=== PATIENT | male | born 1960 | race Caucasian/White ===

== ENCOUNTER 2024-07-09 17:17 | Inpatient (IN) ==
--- NOTE | 2024-07-09 17:40 | XRay Report ---
XR chest 1V not portable HISTORY: 63 years-old Male Chest pain, nonspecific COMPARISON: None TECHNIQUE: PA view of the chest FINDINGS: Cardiomediastinal silhouettes are within normal limits. No pneumothorax, pleural effusion or airspace consolidation. Spondylitic spurring of the spine. IMPRESSION: No acute process. ACT 112: Negative or not required by law. The above report was generated using voice recognition software. It may contain grammatical, syntax o r spelling errors. Electronically signed by: Travis Busby M.D. 07/09/2024 5:39 PM
[2024-07-09 17:56] LABS: Basophils # (auto) 0.06 K/uL (0.00-0.20); Basophils % (auto) 0.7 %; Eosinophils # (auto) 0.18 K/uL (0.00-0.50); Eosinophils % (auto) 2.2 %; Hematocrit (blood only) 43.3 % (42.0-52.0); Hemoglobin 14.8 g/dl (14.0-18.0); Immature Granulocytes # (auto) 0.02 K/uL (0.01-0.20); Immature Granulocytes % (auto) 0.2 %; Lymphocytes # (auto) 1.94 K/uL (1.20-3.40); Lymphocytes % (auto) 23.5 %; Mean Corpuscular Hemoglobin 28.8 pg (25.0-34.0); Mean Corpuscular Hgb Conc 34.2 g/dL (32.0-36.0); Mean Corpuscular Volume 84.4 fL (80.0-100.0); Mean Platelet Volume 9.9 fL (9.4-12.4); Monocytes # (auto) 0.84 K/uL (0.11-0.59); Monocytes % (auto) 10.2 %; Neutrophils # (auto) 5.23 K/uL (1.40-6.50); Neutrophils % (auto) 63.2 %; Platelet Count 239 K/uL (130-400); RDW Coefficient of Variation 12.8 % (11.5-14.5); RDW Standard Deviation 39.2 fL (36.4-46.3); Red Blood Count 5.13 M/uL (4.70-6.10); White Blood Count 8.27 K/ul (4.8-10.8)
[2024-07-09 18:11] LABS: Albumin Globulin Ratio 1.5 (0.9-2); Albumin Level 4.5 gm/dl (3.4-5.0); BUN Creatinine Ratio 13.4 (10-20); Bilirubin,Total 0.5 mg/dl (0.2-1.0); Calcium 9.8 mg/dl (8.6-10.3); Creatinine Clr Calc Pharmacy 85.8 ml/min; Est GFR (African American) 81.7 ml/min; Est GFR (Non-African American) 70.5 ml/min; Globulin 3.1 gm/dl (2.5-4.0); Potassium 3.9 mmol/L (3.5-5.1); Total Protein 7.6 gm/dl (6.0-8.3)
[2024-07-09 18:21] LABS: INR 0.9 (0.9-1.1); Partial Thromboplastin Ratio 0.9; Partial Thromboplastin Time 25 Seconds (21-31)
[2024-07-09 18:40] LABS: Troponin I High Sensitivity 3130.8 pg/ml (0-20)
--- NOTE | 2024-07-09 19:01 | Emergency Department Note ---
Impression & Plan Unstable angina pectoris, Chest pain, Non-ST elevation [place] (NSTEMI), Elevated troponin ED Provider Note NAME: KAREN VILLANUEVA AGE: 63 SEX: M : 1960 ARRIVES VIA: Walk-In INFORMANT: Patient ED PROVIDER(S): Naga Orozco DO CHIEF COMPLAINT: chest pain HPI: Patient is a 63-year-old male who presents to the ER for chest pain. Pain is located in the left upper shoulder and left mid chest. He describes it as a tightness. It does go down the arm. He thinks he has some mild shortness of breath. He notes has been present for the past 2 days. He notes it was coming and going initially but now has been constant all day. Denies any coughing of blood, urinating blood, vomiting blood. No recent trauma or surgery. ADDITIONAL HISTORY OBTAINED: Per HPI Chronic Medical/Social Conditions Affecting Care: Per HPI PAST MEDICAL HISTORY:See Below PAST SURGICAL HISTORY:See Below FAMILY HISTORY:See Below SOCIAL HISTORY:See Below HOME MEDICATIONS:See Below ALLERGIES:See Below VITALS:See Below PHYSICAL EXAMINATION: GENERAL: Sitting up in bed, alert, well appearing, well nourished, no distress, non-toxic EYE EXAM: normal conjunctiva. PERRL and EOM's grossly intact. OROPHARYNX: mucous membranes are moist NECK: supple, no nuchal rigidity, no adenopathy, non-tender LUNGS: Clear to auscultation. Normal chest wall mechanics HEART: no murmurs, S1 normal and S2 normal ABDOMEN: abdomen soft, non-tender, normo-active bowel sounds, no masses, no rebound or guarding. UPPER EXTREMITIES: upper extremities are grossly normal. LOWER EXTREMITIES: No pitting edema. Calves are equal bilaterally NEURO EXAM: Normal sensorium, cranial nerves II-XII grossly intact, normal speech, no gross weakness of arms, no gross weakness of legs. MEDICAL DECISION MAKING: Patient is a 63-year-old male who presents to the ER for chest pain which started yesterday. IV was established medicos obtained. Labs show no significant leukocytosis or anemia. INR unremarkable. BMP with LFTs bilirubin was unremarkable. Troponin was elevated at 3000. Upon arrival he was having chest pain. EKG showed ST depressions. He was given nitro and aspirin. Chest pain resolved. It did recur. He was already on a heparin drip and was given heparin bolus. I discussed with cardiology Dr. Gallardo once the troponin was elevated and at this time the patient was initially pain-free. He recommended if the pain reoccurs to call heart alert. Pain did recur later and heart alert was called. Patient was taken emergently to the Child Care Worker. Patient denied any contraindications including hemoptysis, bright red blood per rectum, recent surgery, trauma or head bleeds. Consults/Care Managements Discussions: Per [facility] Triage Nursing notes reviewed. Limited review of prior medical records performed Vital Signs: reviewed and remarkable for HTN Differential diagnosis: Cardiac ischemia, aortic dissection, pulmonary embolism, pneumothorax, pneumonia, pericarditis, myocarditis, esophageal rupture, GERD, cholecystitis, pancreatitis, musculoskeletal, as well as other pathologies. ER treatment provided: See below Diagnostics interpreted by me include EKG and cardiac monitoring as listed below: -Cardiac Monitoring: An order was placed for continuous cardiac monitoring. The monitor shows a rate of 80 with sinus rhythm. -ECG: EKG #2 Sinus rhythm rate of 77 Normal axis No PVCs QTc 452 EKG the #1 Sinus rhythm rate [address] changes in inferior leads QTc 456 -Laboratory studies:Interpreted by me as stated above in MDM and shown below. Imaging studies: Xrays: As interpreted by me: Portable AP upright 1 view of the chest shows no focal infiltrate CTs show: none Procedures:none Critical Care: I have personally spent 35 minutes of critical care time in the direct management of this patient. This includes bedside care, interpretation of diagnostic studies, and testing, discussion with consultants, patient, and family members, and other required patient management activities. This 35 minutes is in excess of all separately billable procedures. Past Med/Surg History Problem List Bunionette of right foot Hallux valgus (acquired), right foot Encounter for pre-operative examination Medical History Acid reflux Depression Hearing deficit BL History of COVID-19 11/01/20 GHS; congestion, loss of taste/smell; denies lingering symptoms HLD (hyperlipidemia) HTN (hypertension) Tinnitus Surgical History History of arthroscopy of left knee x 2 History of arthroscopy of right knee History of colonoscopy History of foot surgery Rt History of surgical removal of ganglion cyst History of tonsillectomy Family History Other No family history of adverse response to anesthesia Social History Smoking Status: Never smoker Second Hand Exposure: No; Do You Dip or Chew Tobacco: No; Hx Alcohol Use: Yes Alcohol type: beer Hx Substance Use: No Preferred Language: Taiwanese Communication Ability: Effective Visual Impairment: No Limitations Chair And Couch Maker Required: No Beliefs That Will Affect Care: None Current Living Situation: Spouse Other Information That Helps Us Care for You: No Feels Safe at Home: Yes Safety Concerns: Feels Safe At This Time Assistive Devices: Glasses, Hearing Aid - Left and Hearing Aid - Right Allergies Allergies Allergy/AdvReac Type Severity Reaction Status Date / Time No Known Allergies Allergy Verified 07/09/24 19:12 Home Meds Home Medications Medication Instructions Recorded Confirmed omeprazole 20 mg tablet,delayed 20 mg PO DAILY PRN gerd 02/15/21 07/09/24 release aspirin 81 mg tablet,delayed 81 mg PO DAILY 07/09/24 07/09/24 release lidocaine 5 % topical patch 1 patch topical DAILY PRN SHOULDER 07/09/24 07/09/24 PAIN lisinopril 10 mg tablet 10 mg PO QAM 07/09/24 07/09/24 rosuvastatin 40 mg tablet 40 mg PO QAM 07/09/24 07/09/24 Results & Data (ED) Vital Signs Vital Signs - 24 hr 07/09/24 17:19 07/09/24 19:00 07/09/24 19:00 Temperature 36.5 C Temperature Source Temporal Artery Scan Pulse Rate 83 81 Pulse Rate from SpO2 Sensor Respiratory Rate 15 16 Respiratory Effort / Characteristics Non-Labored Spontaneous Respiratory Depth Normal Blood Pressure 174/109 H 157/98 H Blood Pressure Mean 130 122 Pulse Oximetry 95 97 97 Oxygen Delivery Method Room Air Room Air Room Air Sepsis Recent Fever Within 48 Hours No Sepsis New/Unexplained Change in Mental Status No Sepsis Action Taken by Nursing No Action Required 07/09/24 19:10 07/09/24 19:16 07/09/24 19:21 Temperature Temperature Source Pulse Rate 75 Pulse Rate from SpO2 Sensor 75 Respiratory Rate 18 Respiratory Effort / Characteristics Respiratory Depth Blood Pressure 151/98 H 142/91 H Blood Pressure Mean 107 108 Pulse Oximetry 97 96 Oxygen Delivery Method Room Air Room Air Sepsis Recent Fever Within 48 Hours Sepsis New/Unexplained Change in Mental Status Sepsis Action Taken by Nursing 07/09/24 19:30 07/09/24 19:30 07/09/24 19:48 Temperature Temperature Source Pulse Rate 71 70 Pulse Rate from SpO2 Sensor 71 69 Respiratory Rate 18 14 Respiratory Effort / Characteristics Respiratory Depth Blood Pressure 167/101 H 167/101 H 140/88 Blood Pressure Mean 138 123 105 Pulse Oximetry 99 98 Oxygen Delivery Method Room Air Room Air Sepsis Recent Fever Within 48 Hours Sepsis New/Unexplained Change in Mental Status Sepsis Action Taken by Nursing 07/09/24 19:51 07/09/24 19:52 07/09/24 19:53 Temperature Temperature Source Pulse Rate 71 75 75 Pulse Rate from SpO2 Sensor 72 Respiratory Rate 15 18 Respiratory Effort / Characteristics Respiratory Depth Blood Pressure 132/78 140/88 Blood Pressure Mean 96 105 Pulse Oximetry 98 96 Oxygen Delivery Method Room Air Room Air Sepsis Recent Fever Within 48 Hours Sepsis New/Unexplained Change in Mental Status Sepsis Action Taken by Nursing 07/09/24 19:54 07/09/24 20:18 07/09/24 20:21 Temperature 36.9 C Temperature Source Oral Pulse Rate 85 82 Pulse Rate from SpO2 Sensor 84 82 Respiratory Rate 21 22 Respiratory Effort / Characteristics Respiratory Depth Blood Pressure 172/119 H 179/114 H Blood Pressure Mean 136 135 Pulse Oximetry 98 98 Oxygen Delivery Method Room Air Room Air Room Air Sepsis Recent Fever Within 48 Hours Sepsis New/Unexplained Change in Mental Status Sepsis Action Taken by Nursing Laboratory Data 07/09/24 17:45 07/09/24 17:45 Lab Results 07/09/24 07/09/24 Range/Units 17:45 19:43 WBC 8.27 (4.8-10.8) K/ul RBC 5.13 (4.70-6.10) M/uL Hgb 14.8 (14.0-18.0) g/dl Hct 43.3 (42.0-52.0) % MCV 84.4 (80.0-100.0) fL MCH 28.8 (25.0-34.0) pg MCHC 34.2 (32.0-36.0) g/dL RDW Std Deviation 39.2 (36.4-46.3) fL RDW Coeff of Yamel 12.8 (11.5-14.5) % Plt Count 239 (130-400) K/uL MPV 9.9 (9.4-12.4) fL Immature Gran % (Auto) 0.2 % Neut % (Auto) 63.2 % Lymph % (Auto) 23.5 % [place] % (Auto) 10.2 % Eos % (Auto) 2.2 % Baso % (Auto) 0.7 % Neut # (Auto) 5.23 (1.40-6.50) K/uL Lymph # (Auto) 1.94 (1.20-3.40) K/uL [place] # (Auto) 0.84 H (0.11-0.59) K/uL Eos # (Auto) 0.18 (0.00-0.50) K/uL Baso # (Auto) 0.06 (0.00-0.20) K/uL Immature Gran # (Auto) 0.02 (0.01-0.20) K/uL PT 10.0 (9.0-12.0) Seconds INR 0.9 (0.9-1.1) APTT 25 (21-31) Seconds PTT Ratio 0.9 Sodium 137 (136-145) mmol/L Potassium 3.9 (3.5-5.1) mmol/L Chloride 102 (98-107) mmol/L Carbon Dioxide 29 (21-32) mmol/L Anion Gap 6 (3-11) BUN 15 (6-23) mg/dl Creatinine 1.12 (0.6-1.4) mg/dl Est Cr Clr Drug Dosing 85.8 ml/min Est GFR ( Amer) 81.7 ml/min Est GFR (Non-Af Amer) 70.5 ml/min BUN/Creatinine Ratio 13.4 (10-20) Glucose 105 H (70-99(Fasting)) mg/dl Calcium 9.8 (8.6-10.3) mg/dl Magnesium 2.0 (1.7-2.4) mg/dl Total Bilirubin 0.5 (0.2-1.0) mg/dl AST 45 H (13-39) U/L ALT 24 (7-52) U/L Alkaline Phosphatase 70 (34-104) U/L Troponin I High Sens 3130.8 H* 3819.9 H* D (0-20) pg/ml Total Protein 7.6 (6.0-8.3) gm/dl Albumin 4.5 (3.4-5.0) gm/dl Globulin 3.1 (2.5-4.0) gm/dl Albumin/Globulin Ratio 1.5 (0.9-2) Administered Medications Heparin Sodium/Dextrose (Heparin Sodium/Dextrose) 25,000 units in 500 mls @ 20 mls/hr IV .Q24H [facility]; Protocol Stop: 08/08/24 19:14 Last Admin: 07/09/24 19:18 Dose: 1,000 units/hr, 20 mls/hr Documented By: HIMANSHU Co-signed By: JEM Sodium Chloride (Nss) 1,000 mls @ 75 mls/hr IV .[id number] ARTIS Stop: 08/08/24 21:59 Last Admin: 07/09/24 22:17 Dose: 75 mls/hr Documented By: [id number] Miscellaneous (Icu Protocol For Hyperglycemia) 1 each N/A ACHS ARTIS Stop: 07/11/24 21:34 Last Admin: 07/09/24 22:22 Dose: Not Given Documented By: [id number] Discontinued Medications Aspirin (Aspirin Chew 324 Mg) 324 mg PO NOW STA Stop: 07/09/24 18:55 Last Admin: 07/09/24 19:13 Dose: 324 mg Documented By: HIMANSHU Fentanyl Citrate (Fentanyl Citrate Pf 100 Mcg/2 Ml Vial) Confirm Administered Dose 100 mcg .ROUTE .STK-MED ONE Stop: 07/09/24 20:16 Last Increment: 07/09/24 21:47 Dose: 75 mcg Documented By: TJ Heparin Sodium (Porcine) (Heparin Sod (Porcine) 1000 Unit/Ml) 1 units IV NOW ONE Stop: 07/09/24 19:11 Last Admin: 07/09/24 19:15 Dose: 4,000 units Documented By: HIMANSHU Co-signed By: JEM Heparin Sodium (Porcine) (Heparin (Porcine) 1000 Unit/Ml 10 Ml (Child Care Worker Use Only)) Confirm Administered Dose 10,000 units .ROUTE .STK-MED ONE Stop: 07/09/24 20:15 Last Admin: 07/09/24 21:46 Dose: 9,500 units Documented By: TJ Heparin Sodium (Porcine) (Heparin (Porcine) 1000 Unit/Ml 10 Ml (Child Care Worker Use Only)) Confirm Administered Dose 10,000 units .ROUTE .STK-MED ONE Stop: 07/09/24 21:39 Last Admin: 07/09/24 22:17 Dose: Not Given Documented By: [id number] Heparin Sodium/Dextrose (Heparin Iv Adult Wt-Based Low-Dose W/ Initial Bolus Protocol) 1 each IV NOW STA; Protocol Stop: 07/09/24 18:56 Last Admin: 07/09/24 19:19 Dose: 1 each Documented By: HIMANSHU Heparin Sodium/Sodium Chloride (Heparin In Nss Infusion 1000 Unit/500 Ml (2 U/Ml) Bag) Confirm Administered Dose 3,000 units IV .STK-MED ONE Stop: 07/09/24 20:16 Last Admin: 07/09/24 21:47 Dose: 3,000 units Documented By: RADHA Iodixanol (Iodixanol (Visipaque) 320 Mg/Ml 100ml) Confirm Administered Dose 1 ml IV .STK-MED ONE Stop: 07/09/24 20:16 Last Admin: 07/09/24 21:48 Dose: 295 ml Documented By: RADHA Ioversol (Optiray 350) Confirm Administered Dose 1 ml .ROUTE .ST-MED ONE Stop: 07/09/24 20:16 Last Admin: 07/09/24 22:18 Dose: Not Given Documented By: [id number] Metoprolol Tartrate (Metoprolol Tartrate 25 Mg Tab) 12.5 mg PO NOW STA Stop: 07/09/24 19:53 Last Admin: 07/09/24 20:17 Dose: Not Given Documented By: HIMANSHU Midazolam HCl (Midazolam Hcl 1 Mg/Ml 2ml Vial) Confirm Administered Dose 2 mg .ROUTE .STK-MED ONE Stop: 07/09/24 20:15 Last Admin: 07/09/24 21:46 Dose: 3 mg Documented By: TJ Midazolam HCl (Midazolam Hcl 1 Mg/Ml 2ml Vial) Confirm Administered Dose 2 mg .ROUTE .STK-MED ONE Stop: 07/09/24 20:39 Last Admin: 07/09/24 22:18 Dose: Not Given Documented By: [id number] Nicardipine HCl (Nicardipine Hcl Inj 2.5 Mg/Ml 10 Ml Amp) Confirm Administered Dose 25 mg .ROUTE .STK-MED ONE Stop: 07/09/24 20:16 Last Admin: 07/09/24 21:48 Dose: 25 mg Documented By: RADHA Nitroglycerin (Nitroglycerin Sl 0.4 Mg/Tab Tab) 0.4 mg SL Q5M PRN PRN Reason: Chest Pain Stop: 08/08/24 18:53 Last Admin: 07/09/24 19:55 Dose: 0.4 mg Documented By: Admin: 07/09/24 19:52 Dose: 0.4 mg Documented By: HIMANSHU Nitroglycerin/Dextrose (Nitroglycerin/D5w 100mcg/Ml 20ml Syr) Confirm Administered Dose 2,000 mcg .ROUTE .STK-MED ONE Stop: 07/09/24 20:16 Last Admin: 07/09/24 21:49 Dose: 2,000 mcg Documented By: RADHA Ticagrelor (Ticagrelor 90 Mg Tab) Confirm Administered Dose 180 mg .ROUTE .STK- MED ONE Stop: 07/09/24 21:34 Last Admin: 07/09/24 21:49 Dose: 180 mg Documented By: TJ Imaging Data Radiologist's Impression: Chest X-Ray 07/09/24 17:22 XR chest 1V not portable HISTORY: 63 years-old Male Chest pain, nonspecific COMPARISON: None TECHNIQUE: PA view of the chest FINDINGS: Cardiomediastinal silhouettes are within normal limits. No pneumothorax, pleural effusion or airspace consolidation. Spondylitic spurring of the spine. IMPRESSION: No acute process. ACT 112: Negative or not required by law. The above report was generated using voice recognition software. It may contain grammatical, syntax or spelling errors. Electronically signed by: Travis Busby M.D. 07/09/2024 5:39 PM Discharge Plan Visit Data Chief Complaint: Chest Pain Stated Complaint: CHEST PAIN, LT ARM PAIN ED Provider: Naga Orozco Patient Disposition: Still a Patient Discharge Instructions Interventions: ED Discharge Assessment Last Done: 07/09/24 20:21
[2024-07-09] MEDS: ASPIRIN CHEW 324 MG PO STA (19:13)
[2024-07-09] MEDS: HEPARIN SOD (PORCINE) 1000 UNIT/ML IV ONE (19:15)
[2024-07-09] MEDS: HEPARIN SODIUM/DEXTROSE 25,000 UNITS/500 ML BAG IV SCH (19:18)
[2024-07-09] MEDS: Heparin IV Adult Wt-Based Low-Dose w/ INITIAL Bolus Protocol IV STA (19:19)
[2024-07-09] MEDS: NITROGLYCERIN SL 0.4 MG/TAB TAB SL PRN (19:52)
--- NOTE | 2024-07-09 20:01 | History & Physical Report ---
Date of Service July 09, 2024 Assessment & Plan (1) Non-ST elevation [place] (NSTEMI): Plan: hypertension, elevated secondary to above hyperlipidemia, on statin Rx anxiety/mood disorder, stable Admit to ICU Continue n.p.o. status for anticipated diagnostic cardiac catheterization Management of cardiac issues as per optical dispenser. (ED provider already in touch with Dr. Mckeon.) Initiate beta-marley DVT prophylaxis. IV heparin Full code Text document was generated using [employer] voice recognition software. It may contain grammatical or spelling errors. Kindly contact undersigned for clarification of any documentation item in question. History of Present Illness Chief Complaint: Chest pain Primary Care Provider: ERIC Cruz History obtained from patient and records. Medical history significant for hypertension, hyperlipidemia, anxiety/mood disorder. 2 days history of achy left-sided chest pain going to the shoulder associated with shortness of breath. No cough, no fever, no chills. Different from usual shoulder pain for which patient is scheduled to go for elective surgery next month. Worsening discomfort while attending a wedding this afternoon. SBP 170s upon arrival at the ER. Discomfort relieved by aspirin and nitroglycerin administration at the ER. IV heparin initiated at the ER. Heart alert called for recurrent chest pain as per on-call data technical lead recommendations. 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 Allergies Allergy/AdvReac Type Severity Reaction Status Date / Time No Known Allergies Allergy Verified 07/09/24 19:12 Home Medications Medication Instructions Recorded Confirmed Type omeprazole 20 mg tablet,delayed 20 mg PO DAILY PRN gerd 02/15/21 07/09/24 History release aspirin 81 mg tablet,delayed 81 mg PO DAILY 07/09/24 07/09/24 History release lidocaine 5 % topical patch 1 patch topical DAILY PRN SHOULDER 07/09/24 07/09/24 History PAIN lisinopril 10 mg tablet 10 mg PO QAM 07/09/24 07/09/24 History rosuvastatin 40 mg tablet 40 mg PO QAM 07/09/24 07/09/24 History Past Med/Surg History Problem List (Updated 07/09/24 @ 22:54 by Jez Mckeon MD, PhD) Benign essential hypertension Atherogenic dyslipidemia Non-ST elevation [place] (NSTEMI) Coronary artery disease with angina pectoris Bunionette of right foot Hallux valgus (acquired), right foot Encounter for pre-operative examination Medical History History of COVID-19 11/01/20 GHS; congestion, loss of taste/smell; denies lingering symptoms Acid reflux Tinnitus Hearing deficit BL Depression HLD (hyperlipidemia) HTN (hypertension) Surgical History History of surgical removal of ganglion cyst History of tonsillectomy History of arthroscopy of right knee History of arthroscopy of left knee x 2 History of foot surgery Rt History of colonoscopy Family History Other No family history of adverse response to anesthesia Social History Smoking Status: Never smoker Second Hand Exposure: No; Do You Dip or Chew Tobacco: No; Hx Alcohol Use: Yes Alcohol type: beer Hx Substance Use: No Preferred Language: Northern Irish Communication Ability: Effective Visual Impairment: No Limitations Volleyball Coach Required: No Beliefs That Will Affect Care: None Current Living Situation: Spouse Other Information That Helps Us Care for You: No Feels Safe at Home: Yes Safety Concerns: Feels Safe At This Time Assistive Devices: Glasses, Hearing Aid - Left and Hearing Aid - Right Review of Systems Review of Systems: As per HPI, all other systems reviewed and negative Physical Exam Physical Exam: GENERAL: Comfortable, pleasant, obese, no respiratory distress SKIN: Normal color, warm HEENT: Alopecia, [place] palpebral conjunctivae, no ptosis, moist buccal mucosa NECK : Supple, no tenderness CHEST : CTA, no tenderness HEART : RRR, no obvious murmurs ABDOMEN: Some distention, nontender EXTREMITIES : No LE swelling/tenderness, no other conspicuous deformities noted NEUROLOGIC : Coherent, no facial asymmetry, no other gross focality Results & Data Results & Data Vital Signs (Past 12 Hours) Vital Signs Temp Pulse Resp BP Pulse Ox O2 Del Method 07/09/24 19:53 75 07/09/24 19:52 75 18 140/88 96 Room Air 07/09/24 19:51 71 15 132/78 98 Room Air 07/09/24 19:48 70 14 140/88 98 Room Air 07/09/24 19:30 71 18 167/101 H 99 Room Air 07/09/24 19:30 167/101 H 07/09/24 19:21 75 18 142/91 H 96 Room Air 07/09/24 19:16 151/98 H 07/09/24 19:10 97 Room Air 07/09/24 19:00 81 16 157/98 H 97 Room Air 07/09/24 19:00 97 Room Air 07/09/24 17:19 36.5 C 83 15 174/109 H 95 Room Air Laboratory Results Laboratory Results WBC 8.27 K/ul (4.8-10.8) 07/09/24 17:45 RBC 5.13 M/uL (4.70-6.10) 07/09/24 17:45 Hgb 14.8 g/dl (14.0-18.0) 07/09/24 17:45 Hct 43.3 % (42.0-52.0) 07/09/24 17:45 MCV 84.4 fL (80.0-100.0) 07/09/24 17:45 MCH 28.8 pg (25.0-34.0) 07/09/24 17:45 MCHC 34.2 g/dL (32.0-36.0) 07/09/24 17:45 RDW Std Deviation 39.2 fL (36.4-46.3) 07/09/24 17:45 RDW Coeff of Yamel 12.8 % (11.5-14.5) 07/09/24 17:45 Plt Count 239 K/uL (130-400) 07/09/24 17:45 MPV 9.9 fL (9.4-12.4) 07/09/24 17:45 Immature Gran % (Auto) 0.2 % 07/09/24 17:45 Neut % (Auto) 63.2 % 07/09/24 17:45 Lymph % (Auto) 23.5 % 07/09/24 17:45 [place] % (Auto) 10.2 % 07/09/24 17:45 Eos % (Auto) 2.2 % 07/09/24 17:45 Baso % (Auto) 0.7 % 07/09/24 17:45 Neut # (Auto) 5.23 K/uL (1.40-6.50) 07/09/24 17:45 Lymph # (Auto) 1.94 K/uL (1.20-3.40) 07/09/24 17:45 [place] # (Auto) 0.84 K/uL (0.11-0.59) H 07/09/24 17:45 Eos # (Auto) 0.18 K/uL (0.00-0.50) 07/09/24 17:45 Baso # (Auto) 0.06 K/uL (0.00-0.20) 07/09/24 17:45 Immature Gran # (Auto) 0.02 K/uL (0.01-0.20) 07/09/24 17:45 PT 10.0 Seconds (9.0-12.0) 07/09/24 17:45 INR 0.9 (0.9-1.1) 07/09/24 17:45 APTT 25 Seconds (21-31) 07/09/24 17:45 PTT Ratio 0.9 07/09/24 17:45 Sodium 137 mmol/L (136-145) 07/09/24 17:45 Potassium 3.9 mmol/L (3.5-5.1) 07/09/24 17:45 Chloride 102 mmol/L (98-107) 07/09/24 17:45 Carbon Dioxide 29 mmol/L (21-32) 07/09/24 17:45 Anion Gap 6 (3-11) 07/09/24 17:45 BUN 15 mg/dl (6-23) 07/09/24 17:45 Creatinine 1.12 mg/dl (0.6-1.4) 07/09/24 17:45 Est Cr Clr Drug Dosing 85.8 ml/min 07/09/24 17:45 Est GFR ( Amer) 81.7 ml/min 07/09/24 17:45 Est GFR (Non-Af Amer) 70.5 ml/min 07/09/24 17:45 BUN/Creatinine Ratio 13.4 (10-20) 07/09/24 17:45 Glucose 105 mg/dl (70-99(Fasting)) H 07/09/24 17:45 Calcium 9.8 mg/dl (8.6-10.3) 07/09/24 17:45 Total Bilirubin 0.5 mg/dl (0.2-1.0) 07/09/24 17:45 AST 45 U/L (13-39) H 07/09/24 17:45 ALT 24 U/L (7-52) 07/09/24 17:45 Alkaline Phosphatase 70 U/L (34-104) 07/09/24 17:45 Troponin I High Sens 3130.8 pg/ml (0-20) H* 07/09/24 17:45 Total Protein 7.6 gm/dl (6.0-8.3) 07/09/24 17:45 Albumin 4.5 gm/dl (3.4-5.0) 07/09/24 17:45 Globulin 3.1 gm/dl (2.5-4.0) 07/09/24 17:45 Albumin/Globulin Ratio 1.5 (0.9-2) 07/09/24 17:45 Impressions Chest X-Ray 07/09/24 17:22 XR chest 1V not portable HISTORY: 63 years-old Male Chest pain, nonspecific COMPARISON: None TECHNIQUE: PA view of the chest FINDINGS: Cardiomediastinal silhouettes are within normal limits. No pneumothorax, pleural effusion or airspace consolidation. Spondylitic spurring of the spine. IMPRESSION: No acute process. ACT 112: Negative or not required by law. The above report was generated using voice recognition software. It may contain grammatical, syntax or spelling errors. Electronically signed by: Travis Busby M.D. 07/09/2024 5:39 PM Diagnostic Findings EKG as per my interpretation : Rate 75, NSR, normal axis, no ischemia, PVCs
[2024-07-09] MEDS: METOPROLOL TARTRATE 25 MG TAB PO STA (20:17)
[2024-07-09 20:26] LABS: Troponin I High Sensitivity 3819.9 pg/ml (0-20)
[2024-07-09] MEDS ORDERED: PANTOprazole 40 MG TAB PO PRN (21:36)
[2024-07-09] MEDS: MIDAZOLAM HCL 1 MG/ML 2ML VIAL ONE ×2 (21:46→22:18)
[2024-07-09] MEDS: HEPARIN (PORCINE) 1000 UNIT/ML 10 ML (CATH LAB USE ONLY) ONE ×2 (21:46→22:17)
[2024-07-09] MEDS: fentaNYL citrate PF 100 MCG/2 ML VIAL ONE (21:47)
[2024-07-09] MEDS: niCARdipine HCL INJ 2.5 MG/ML 10 ML AMP ONE (21:48)
[2024-07-09] MEDS: IODIXANOL (VISIPAQUE) 320 MG/ML 100ML IV ONE (21:48)
[2024-07-09] MEDS: TICAGRELOR 90 MG TAB ONE (21:49)
[2024-07-09] MEDS: NITROGLYCERIN/D5W 100MCG/ML 20ML SYR ONE (21:49)
[2024-07-09] MEDS ORDERED: ONDANSETRON INJ 2 MG/ML 2 ML VIAL IV PRN (21:52)
[2024-07-09] MEDS ORDERED: ATROPINE SULFATE 0.1 MG/ML 10ML SYR IV PRN (21:52)
[2024-07-09] MEDS ORDERED: NITROGLYCERIN SL 0.4 MG/TAB TAB SL PRN (21:52)
--- NOTE | 2024-07-09 22:00 | Pre Anesthesia Assessment ---
Date of Service July 09, 2024 Pre Sedation Assessment Vital Signs Temp Pulse Resp BP Pulse Ox O2 Del Method 07/09/24 20:21 36.9 C Room Air 07/09/24 20:18 82 22 179/114 H 98 Room Air 07/09/24 19:54 85 21 172/119 H 98 Room Air 07/09/24 19:53 75 07/09/24 19:52 75 18 140/88 96 Room Air 07/09/24 19:51 71 15 132/78 98 Room Air 07/09/24 19:48 70 14 140/88 98 Room Air 07/09/24 19:30 71 18 167/101 H 99 Room Air 07/09/24 19:30 167/101 H 07/09/24 19:21 75 18 142/91 H 96 Room Air 07/09/24 19:16 151/98 H 07/09/24 19:10 97 Room Air 07/09/24 19:00 81 16 157/98 H 97 Room Air 07/09/24 19:00 97 Room Air 07/09/24 17:19 36.5 C 83 15 174/109 H 95 Room Air Cardiovascular RRR, no murmur, no edema Respiratory normal respiratory effort, lungs clear to auscultation Pre-Sedation Airway Assessment Smoking Status: Never smoker mallampati 3 ASA 4 Notes The planned sedation has been discussed with the patient. Informed Consent was obtained. I have identified the patient, determined the appropriateness of sedation and have assessed the patient immediately prior to the procedure. All medicine(s) and interventions are by my order.
--- NOTE | 2024-07-09 22:02 | Post Anesthesia Assessment ---
Date of Service July 09, 2024 Post Sedation Assessment Vital Signs Temp Pulse Resp BP Pulse Ox O2 Del Method 07/09/24 20:21 36.9 C Room Air 07/09/24 20:18 82 22 179/114 H 98 Room Air 07/09/24 19:54 85 21 172/119 H 98 Room Air 07/09/24 19:53 75 07/09/24 19:52 75 18 140/88 96 Room Air 07/09/24 19:51 71 15 132/78 98 Room Air 07/09/24 19:48 70 14 140/88 98 Room Air 07/09/24 19:30 71 18 167/101 H 99 Room Air 07/09/24 19:30 167/101 H 07/09/24 19:21 75 18 142/91 H 96 Room Air 07/09/24 19:16 151/98 H 07/09/24 19:10 97 Room Air 07/09/24 19:00 81 16 157/98 H 97 Room Air 07/09/24 19:00 97 Room Air 07/09/24 17:19 36.5 C 83 15 174/109 H 95 Room Air Recovery Score Activity: Moves 4 extremities Respiration: Deep Breath/Cough Circulation: +/-20% PreAnes Value Consciousness: Fully Awake Oxygen Saturation: > 92% On Room Air Discharge Sedation Level of Care: Fast Track Phase II Post Sedation Plan On clinical assessment, the patient appears to have tolerated the sedation without complications. Patient is recovering as anticipated. Patient will continue to be monitored by nursing and may be discharged when sedation discharge criteria are met per below protocol. Upon Completions of procedure up to 15 minutes continue every 5 minute vital signs and the P.A.R. score; then discharge to a Phase I or Fast Track to Phase II per the following guidelines: * Discharge Patient to appropriate Phase II area if PAR is 8 or greater or return to pre- procedure baseline. The post - procedure orders will be as directed. * If PAR score is less than 8 or not return to pre-procedure baseline then patient will follow Phase I monitoring till PAR is reached for Phase II. The Phase I may be done in procedure room or may call to secure a Phase I area. * If naloxone or flumazenil are used for reversal, hold in Phase I for continued monitoring from when last reversal dose was given for a minimum of 60 minutes or longer pending the nurse and/or physician discretion of patient condition before discharge to Phase II. Please call the Sedation Physician to re-evaluate and complete post-note for discharge to Phase II area. Do NOT discharge from procedure sedation or Phase 1 until post- sedation evaluation note is complete by procedure /sedation MD Sedation Discharge Instructions to be given to the patient at discharge to home. [facility] [place] Procedure Codes (Charges) Indication for Procedure Indication for procedure: NSTEMI Sedation/Anesthesia Procedure 1: Sedation/Anesthesia: 44432 Mod Sedation by the same physician;Init15 Min Child Age 5 & Up (initial 15 min, start 2031) Total Sedation Time (minutes): 60 Procedure 2: Sedation/Anesthesia: 69793 Mod Sedation by the same physician; Ea [id number] Minutes (additional 45 min, end 2131) Total Sedation Time (minutes): 60
[2024-07-09] MEDS: SODIUM CHLORIDE 0.9% 1,000 ML IV SCH (22:17)
[2024-07-09] MEDS: OPTIRAY 350 ONE (22:18)
[2024-07-09] MEDS: ICU Protocol for HYPERglycemia SCH (22:22)
--- NOTE | 2024-07-09 22:45 | Cardiac Catheterization ---
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 Cardiac Status Clinical evaluation leading to the procedure CAD Presenation: Non STEMI Anginal Classification: CCS IV Heart Failure: No Cardiogenic Shock within 24 Hours: No Cardiac Arrest within 24 Hours: No Imaging Studies Past 6 Months: No Stress Studies Past 6 Months: No STEMI OR Non-STEMI Symptom Onset Date: 07/08/24 Coronary Anatomy Dominant: Right Left Main (% Stenosis): Normal LAD (% Stenosis): Distal (Early 99%, apical 95%) D1 (% Stenosis): Proximal (20%) Circumflex (% Stenosis): Mid (99%, 95%, 99%) and Distal (99%) OM1 (% Stenosis): Normal OM2 (% Stenosis): Normal L PL1 (% Stenosis): Normal RCA (% Stenosis): Normal (Diffuse mild less than 30%, 50% prior to bifurcation) R PDA (% Stenosis): Normal R PL1 (% Stenosis): Normal Diagnostic Physicians Name: Jez Mckeon MD, PhD Closure Device Percutaneous Entry Location: Radial Closure Device: Radial Band Recommendations: Medical Therapy and/or Counseling and PCI without planned CABG PCI Indication: PCI for high risk Non-SHASTA Lesion Segment Name: LAD Culprit Artery: Yes Stenosis Prior to Rx (%): 99% Chronic Total Occlusion: No Pre-Procedure BETHANIE Flow: 2 Previously Treated Lesion: No Lesion Complexity: Non-High/Non-C Lesion Length (mm): 12 Thrombus Present: No Bifurcation Lesion: No Guidewire Across Lesion: Yes Lesion #2 Segment Name: Mid circumflex Culprit Artery: Yes Stenosis Prior to Rx (%): 99% Chronic Total Occlusion: No Pre-Procedure BETHANIE Flow: 1 Previously Treated Lesion: No Lesion Complexity: High/C Lesion Length (mm): 22 Thrombus Present: No Bifurcation Lesion: No Guidewire Across Lesion: Yes Intraprocedure Events Significant Disection: No Perforation: No Cardiac Cath Procedure Full Procedure Date July 09, 2024 Pre-Procedure Diagnosis Pre-Procedure Diagnosis: Non STEMI AUC Score AUC Score: 08 Post-Procedure Diagnosis Post-Procedure Diagnosis: Severe CAD and Successful PCI Procedure(s) Performed Procedure(s) Performed: Coronary Angiography, Drug Eluting Stent and Ultrasound Guided Vascular Access 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 Sedated using IV Versed and fentanyl. Soft tissues of the right wrist were anesthetized using 2 mL of 1% Xylocaine. Using the ultrasound for guidance (image saved), the right radial artery was accessed and a 6 Kosovan radial artery glide sheath was placed. Patient was provided anticoagulation with IV heparin and antispasmodics including nicardipine and nitroglycerin. All catheters were advanced and exchanged over a 0.035 J-tip wire. Left coronary angiography in orthogonal views a 5 Kosovan [place] 4 diagnostic catheter. Right coronary angiography in orthogonal views with a 5 Kosovan [place] 4 diagnostic catheter. Diagnostic catheters were removed. We next moved to PCI of the LAD. ACT was checked intermittently throughout the procedure and additional heparin was provided as indicated to maintain therapeutic anticoagulation. A 6 Kosovan EBU 3.0 guide catheter was used to engage the left main coronary artery. A BMW reversal guidewire was advanced and positioned distally in the LAD. The lesion was predilated using a 2.5 x 12 mm trek balloon at 12 ziggy. A 2.75 x 15 mm [place] drug-eluting stent was then positioned across the lesion and deployed at 13 ziggy. Body Builder Apprentice angiography was performed. We next proceeded for intervention of the complex circumflex disease. BMW reversal guidewire was pulled back and redirected down the circumflex. Trie d to place it in the distal AV groove vessel but the angulation at the large OM 2 branch would not allow passage of the guidewire. Therefore the guidewire was positioned distally in the large OM 2 branch. We next attempted a second wire using a [place] Blue guidewire which followed the course of the BMW universal guidewire but again could not make the sharp angulated passage into the distal AV groove circumflex. Decision was made to abandon further attempts since this vessel was relatively small for intervention. The lesions in the mid AV groove circumflex were predilated using a 2.0 x 12 mm trek balloon beginning distally at 8 ziggy and then in the more proximal to lesions at 14 ziggy each. The balloon was then removed and angiography performed We then implanted a 2.25 x 15 mm [place] drug-eluting stent in the mid AV groove circumflex which covered the distal and intermediate lesions. This was deployed at 12 ziggy. Stent balloon was removed. A 2.25 x 12 mm Yony drug-eluting stent was then advanced and positioned across the most proximal mid circumflex lesion with its distal edge overlapped with the proximal segment of the first stent. This was then deployed at 14 ziggy. Stent balloon was then advanced across the overlap segment and the balloon inflated to 14 ziggy. Stent balloon was then removed. Postdilatation of the stent train was performed across the overlap segment with a 2.25 x 8 mm NC Mark balloon at 16 ziggy. The balloon was then used to post dilate the proximal portion of the stent at 17 ziggy x 2. Noncompliant balloon was removed from the patient. Body Builder Apprentice angiography was per formed. Guidewire was then removed and final angiographic evaluation was performed in orthogonal views. The guide catheter was removed. Radial artery sheath was removed. Hemostasis was obtained using TR band. Patient remained hemodynamically stable and asymptomatic. He was given 180 mg of Brilinta p.o. and an additional 1000 units of heparin. He was then transported to the ICU for further workup and management. This ended the case. Coronary angiography findings: RCA-diffuse mild less than 30% stenosis throughout the RCA until the bifurcation where there is 50% tubular stenosis just prior to the bifurcation. Vessel bifurcates into a large PDA and a large multi branching posterior lateral. These vessels have diffuse luminal irregularities. LMT-this is large caliber and bifurcates into the LAD and circumflex. It has no more than mild luminal irregularities. QRI-xrobe-iiudiln and wraps the apex distally. Proximal segment with mild to moderate calcification and mild less than 20 to 30% stenosis. First large diagonal branch has branches and proximal 20% stenosis. The mid LAD has mild luminal irregularities and a brief intramyocardial course. The early distal LAD has a focal 99% stenosis. There is BETHANIE II flow beyond this. There is luminal irregularities in the remainder of the distal LAD except for a 95% stenosis in the apical segment where the apical vessel bifurcates. LCx-this is large caliber and nondominant. Travels in the AV groove where it gives a small high rising OM1. Then the mid segment has diffuse severe disease. The earliest portion of this segment has a 99% stenosis then there is a 95% stenosis and just before the ostium of the OM 2 is a another 99% stenosis. Just after the OM to the distal AV groove circumflex has a 99% stenosis and the vessel comes off at a sharp angle after the ostium of the OM 2. The distal vessel then gives a medium caliber OM 3 and terminates later as a small caliber posterolateral branch. There is BETHANIE I flow in the circumflex beyond the mid AV groove lesions. PCI of LAD-there is 0% residual stenosis post PCI PCI of LCx-there is a 0% residual stenosis in the mid circumflex post PCI with 2 overlapped drug-eluting stents. BETHANIE-3 flow post PCI of the LAD and circumflex No evidence of dissection or perforation post PCI Summary: 1. Severe multivessel coronary artery disease involving the LAD and circumflex. Culprit for non-ST elevation [place] is not clear. 2. Successful PCI with implantation of a single large caliber drug-eluting stent in the LAD as well as 2 overlapped small caliber drug-eluting stents in the circumflex. 3. Dual antiplatelet therapy with aspirin 81 mg daily and Brilinta 90 mg p.o. twice daily. 4. Initiate guideline directed medical therapy for secondary prevention of coronary disease to include; low-dose aspirin, high intensity atorvastatin, metoprolol to tartrate, and continue lisinopril 10 mg daily. 5. Recommend patient begin cardiac rehab after convalescence. Hemodynamics Rest Ao:: 116/89 mmHg Final Ao: 158/94 mmHg LV: Not performed Recommendations Recommendations: Medical Therapy and/or Counseling and PCI without planned CABG Radiation Exposure (mGy) 4011 mGy, fluoroscopy time 15.9 minutes Contrast (mls) 295 cc Anesthesia 3 mg Versed, 75 mcg fentanyl Procedural Complication(s) None Disposition ICU I attest to the content of the Intraoperative Record and any orders documented therein. Any exceptions are noted below. [facility] [place] Codes Cardiac Catheterization Procedure 1: Cardiovascular Cath Procedures: 19677 Coronaries Therapeutic Services & Ancillary Procedure 2: Cardiovascular Tx and Anc Procedures: 51771 Ultrasonic Guidance Vascular Access Moderate Sedation Procedure 1: Sedation/Anesthesia: 35521 Mod Sedation by the same physician;Init15 Min Child Age 5 & Up (Initial 15 minutes, start time 2031) Procedure 2: Sedation/Anesthesia: 73762 Mod Sedation by the same physician; Ea [id number] Minutes (Additional 45 minutes, end time 2131) Stenting Procedure 1: Cardiovascular Stent Procedures: 55363 Perc transluminal revascularization of acute sub/total occl, aMI Procedure 2: Cardiovascular Stent Procedures: 20439 Ea addl coronary artery, branch or graft: SUMI COREAS LD PG Care Time/CCT Total # of Minutes Spent Total Time Spent with Patient: Total time spent is greater than 50% in coordination of care (as documented) at patient's floor/unit and/or counseling patient:
[2024-07-09 22:53] LABS: Basophils # (auto) 0.06 K/uL (0.00-0.20); Basophils % (auto) 0.7 %; Eosinophils # (auto) 0.26 K/uL (0.00-0.50); Eosinophils % (auto) 2.9 %; Hematocrit (blood only) 42.2 % (42.0-52.0); Hemoglobin 13.9 g/dl (14.0-18.0); Immature Granulocytes # (auto) 0.02 K/uL (0.01-0.20); Immature Granulocytes % (auto) 0.2 %; Lymphocytes # (auto) 2.55 K/uL (1.20-3.40); Lymphocytes % (auto) 28.6 %; Mean Corpuscular Hemoglobin 28.1 pg (25.0-34.0); Mean Corpuscular Hgb Conc 32.9 g/dL (32.0-36.0); Mean Corpuscular Volume 85.3 fL (80.0-100.0); Monocytes % (auto) 7.8 %; Neutrophils # (auto) 5.33 K/uL (1.40-6.50); Neutrophils % (auto) 59.8 %; Platelet Count 204 K/uL (130-400); RDW Standard Deviation 40.4 fL (36.4-46.3); Red Blood Count 4.95 M/uL (4.70-6.10); White Blood Count 8.92 K/ul (4.8-10.8)
--- NOTE | 2024-07-09 22:58 | Cardiology Consultation ---
Date of Consultation July 09, 2024 Assessment & Plan (1) Coronary artery disease with angina pectoris: We are initiating guideline directed medical therapy for secondary prevention of coronary artery disease. This will include low-dose aspirin, a atorvastatin 40 mg daily, metoprolol to tartrate 25 mg p.o. twice daily and lisinopril 10 mg daily. Will titrate up the medications to achieve clinical targets. I am also going to get an echocardiogram to evaluate his LV function. Strongly encouraged him to participate in cardiac rehab at discharge. (2) Non-ST elevation [place] (NSTEMI): Unclear culprit artery. He therefore underwent PCI of both the LAD and circumflex with good angiographic outcome. He will need to remain on dual antiplatelet therapy for up to 1 to 2 years. We have chosen aspirin 81 mg daily and Brilinta 90 mg p.o. twice daily. I anticipate that he may be ready for discharge within 48 hours. We will be following his cardiac enzymes. 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 High intensity statin therapy ongoing. Checking a fasting lipid panel in the morning. Target LDL reduction will be greater than or equal to 50% of untreated baseline LDL. (4) Benign essential hypertension: Blood pressure remains high. Initiating metoprolol to tartrate 25 mg p.o. twice daily, lisinopril 10 mg daily, and we will use hydralazine IV as needed to keep his systolic blood pressure less than 150 mmHg. Will titrate up his chronic medical regimen to achieve a systolic blood pressure of under 140 mmHg. History of Present Illness Reason for Consultation: Non-ST elevation [place] Attending Physician: Anthony Izquierdo MD History of Present Illness Pleasant 63-year-old gentleman with a history of hypertension, dyslipidemia, and GERD developed left shoulder and left anterior chest pressure with radiation down the left arm beginning yesterday. The symptoms were somewhat waxing and waning and became more persistent earlier today. He eventually decided to seek medical attention at the emergency department. There, his EKG did not show any definitive ischemic changes. However, his cardiac troponin returned positive and despite the use of aspirin and nitroglycerin his pain would come and go. Therefore, when his pain failed to completely resolve decision was made to activate the Hose Sprayer. On my arrival the patient was not having any ongoing chest pain. His EKG was relatively benign appearing. However his troponin was over 3000 and given the story including significant pain yesterday and earlier in the morning decision was made to proceed directly to the cardiac catheterization suite for diagnostic coronary angiography plus or minus PCI as indicated. Coronary angiography revealed severe LAD and circumflex disease. He therefore underwent PCI with implantation of a large caliber drug-eluting stent in the LAD and 2 small caliber overlapped drug-eluting stents in the mid circumflex. Good angiographic outcomes. The patient is now admitted to the ICU for further workup and management. He is chest pain-free. Patient denies any dyspnea, syncope, near syncope, orthopnea, PND, racing heartbeat, palpitations, or edema. He voices no other complaints or concerns at this time. At his request, I spoke with his daughter who is a nurse working in this facility. Allergies Allergy/AdvReac Type Severity Reaction Status Date / Time No Known Allergies Allergy Verified 07/09/24 19:12 Home Medications Medication Instructions Recorded Confirmed Type omeprazole 20 mg tablet,delayed 20 mg PO DAILY PRN gerd 02/15/21 07/09/24 History release aspirin 81 mg tablet,delayed 81 mg PO DAILY 07/09/24 07/09/24 History release lidocaine 5 % topical patch 1 patch topical DAILY PRN SHOULDER 07/09/24 07/09/24 History PAIN lisinopril 10 mg tablet 10 mg PO QAM 07/09/24 07/09/24 History rosuvastatin 40 mg tablet 40 mg PO QAM 07/09/24 07/09/24 History Patient History Medical History History of COVID-19 11/01/20 [facility]; congestion, loss of taste/smell; denies lingering symptoms Acid reflux Tinnitus Hearing deficit BL Depression HLD (hyperlipidemia) HTN (hypertension) Surgical History History of surgical removal of ganglion cyst History of tonsillectomy History of arthroscopy of right knee History of arthroscopy of left knee x 2 History of foot surgery Rt History of colonoscopy Family History Other No family history of adverse response to anesthesia Social History Smoking Status: Never smoker Second Hand Exposure: No; Do You Dip or Chew Tobacco: No; Hx Alcohol Use: Yes Alcohol type: beer Hx Substance Use: No Preferred Language: Slovak Communication Ability: Effective Visual Impairment: No Limitations Campus Receptionist Required: No Beliefs That Will Affect Care: None Current Living Situation: Spouse Other Information That Helps Us Care for You: No Feels Safe at Home: Yes Safety Concerns: Feels Safe At This Time Assistive Devices: Glasses, Hearing Aid - Left and Hearing Aid - Right Review of Systems Review of Systems: Negative except as per HPI Physical Exam Constitutional: WD/WN, vitals as above Eyes: Extraocular muscle intact. Sclera are anicteric. ENMT: Oral mucosa is pink moist and intact Neck: Thick. No JVD. Respiratory: Clear to auscultation bilaterally. No wheezing, rhonchi, or rales. Cardiovascular: Regular rate and rhythm. S4 gallop. Do not appreciate any rubs or murmurs. Musculoskeletal: no cyanosis or clubbing, extremities motor strength 5/5 Neurologic: Cognition is intact. Speech is fluent. No focal deficits. Ambulates normally. Psychiatric: A+Ox3, euthymic affect Results & Data Vital Signs (Past 12 Hours) Vital Signs Temp Pulse Pulse Resp BP BP Pulse Ox 07/09/24 22:30 75 18 135/93 07/09/24 22:15 79 16 140/93 99 07/09/24 22:09 36.6 C 79 16 135/94 99 07/09/24 22:00 36.6 C 77 16 135/94 97 07/09/24 21:50 36.6 C 75 14 134/88 96 07/09/24 20:21 36.9 C 07/09/24 20:18 82 22 179/114 H 98 07/09/24 19:54 85 21 172/119 H 98 07/09/24 19:53 75 07/09/24 19:52 75 18 140/88 96 07/09/24 19:51 71 15 132/78 98 07/09/24 19:48 70 14 140/88 98 07/09/24 19:30 71 18 167/101 H 99 07/09/24 19:30 167/101 H 07/09/24 19:21 75 18 142/91 H 96 07/09/24 19:16 151/98 H 07/09/24 19:10 97 07/09/24 19:00 81 16 157/98 H 97 07/09/24 19:00 97 07/09/24 17:19 36.5 C 83 15 174/109 H 95 O2 Del Method 07/09/24 22:30 Room Air 07/09/24 22:15 Room Air 07/09/24 22:09 Room Air 07/09/24 22:00 Room Air 07/09/24 21:50 Room Air 07/09/24 20:21 Room Air 07/09/24 20:18 Room Air 07/09/24 19:54 Room Air 07/09/24 19:53 07/09/24 19:52 Room Air 07/09/24 19:51 Room Air 07/09/24 19:48 Room Air 07/09/24 19:30 Room Air 07/09/24 19:30 07/09/24 19:21 Room Air 07/09/24 19:16 07/09/24 19:10 Room Air 07/09/24 19:00 Room Air 07/09/24 19:00 Room Air 07/09/24 17:19 Room Air PG Care Time/CCT Total # of Minutes Spent Total Time Spent with Patient: Total time spent is greater than 50% in coordination of care (as documented) at patient's floor/unit and/or counseling patient: A total of 50 minutes critical care time was spent in the initial evaluation and examination of the patient, discussion/interview with the patient, discussion with the emergency department staff and attending physician, discussion with the patient's family and the cardiac catheterization staff, review of the medical records, formulation and implementation of a plan of care, and all associated documentation. This time is exclusive of the time spent for the procedure. Coding Level of Care Code 97505 CRITICAL CARE 1ST 30-74M Diagnoses Coronary artery disease with angina pectoris I25.119 Non-ST elevation [place] (NSTEMI) I21.4 Atherogenic dyslipidemia E78.5 Benign essential hypertension I10 Time Spent (min) 50
--- NOTE | 2024-07-09 23:23 | Critical Care Consultation ---
Date of Consultation July 09, 2024 Assessment & Plan (1) Non-ST elevation [place] (NSTEMI): Patient initially presented with chest pain and troponin greater than 3000 in which heart alert was initiated. Was temporarily placed on heparin drip. Mow status post PCI to LAD x 1 and circumflex x 2 per interventional cardiology - Continue Brilinta, ASA, statin, lisinopril, beta-marley - Appreciate cardiology recommendations - Follow-up TTE - Trend troponins for peak - Maximize electrolytes -Continuous monitor on telemetry -Heart healthy diet - Will monitor in ICU overnight post cardiac catheterization with PCI (2) Atherogenic dyslipidemia: Continue statin (3) Benign essential hypertension: Currently normotensive. Continue MTP, lisinopril, Supervising Physician Co-Signing Physician Notes Patient seen and examined. EMR reviewed. Discussed with critical care NALINI and agree with assessment plan as noted. Please refer to my progress note from 07/10/2024 for additional details History of Present Illness Attending Physician: Anthony Izquierdo MD History of Present Illness Patient is a 63-year-old male with past medical history of HTN, HLD who presented to the emergency department earlier this evening with complaints of chest pain with radiation to the shoulder which had been intermittent for the past 2 days but progressively got worse this afternoon. In the emergency department he was found to have troponin greater than 3000, without any significant ischemic changes on EKG. He was initially started on heparin drip, troponin levels continue to increase. Heart alert was initiated and patient was taken to the [facility] where he was found to have severe multivessel disease and underwent PCI x 2 to circumflex and PCI x 1 to LAD. He now presents to the ICU post cath for further management at this time. On arrival to the ICU the patient is alert and oriented and hemodynamically stable without any acute distress. He is currently maintaining oxygen saturations on room air. He denies further chest pain but does feel a slight tightness in his chest, but is no longer radiating to his shoulder. He reports episodes of intermittent nausea over the past 2 days but denies vomiting. Patient states that he was in his normal state of health prior to this event and has been having shoulder pain over the past few months and was scheduled for shoulder surgery in a couple weeks. He denies recent illness fevers, cough or congestion, dizziness or syncopal events, changes in vision, shortness of breath, abdominal pain, changes in gait, changes in urinary patterns or frequency, swelling in hands or feet,. Allergies Allergy/AdvReac Type Severity Reaction Status Date / Time No Known Allergies Allergy Verified 07/09/24 19:12 Home Medications Medication Instructions Recorded Confirmed Type omeprazole 20 mg tablet,delayed 20 mg PO DAILY PRN gerd 02/15/21 07/09/24 History release aspirin 81 mg tablet,delayed 81 mg PO DAILY 07/09/24 07/09/24 History release lidocaine 5 % topical patch 1 patch topical DAILY PRN SHOULDER 07/09/24 07/09/24 History PAIN lisinopril 10 mg tablet 10 mg PO QAM 07/09/24 07/09/24 History rosuvastatin 40 mg tablet 40 mg PO QAM 07/09/24 07/09/24 History Patient History Medical History History of COVID-19 11/01/20 [facility]; congestion, loss of taste/smell; denies lingering symptoms Acid reflux Tinnitus Hearing deficit BL Depression HLD (hyperlipidemia) HTN (hypertension) Surgical History History of surgical removal of ganglion cyst History of tonsillectomy History of arthroscopy of right knee History of arthroscopy of left knee x 2 History of foot surgery Rt History of colonoscopy Family History Other No family history of adverse response to anesthesia Social History Smoking Status: Never smoker Second Hand Exposure: No; Do You Dip or Chew Tobacco: No; Hx Alcohol Use: Yes Alcohol type: beer Hx Substance Use: No Preferred Language: Kuwaiti Communication Ability: Effective Visual Impairment: No Limitations Generator Repairer Required: No Beliefs That Will Affect Care: None Current Living Situation: Spouse Other Information That Helps Us Care for You: No Feels Safe at Home: Yes Safety Concerns: Feels Safe At This Time Assistive Devices: Glasses, Hearing Aid - Left and Hearing Aid - Right Review of Systems Review of Systems: All systems reviewed & are unremarkable except as noted in HPI & below Physical Exam Constitutional: cooperative and comfortable; no acute distress Eyes: PERRL, conjunctivae normal, anicteric sclerae ENMT: external ear and nose normal, oropharynx normal Neck: trachea midline, no thyromegaly Respiratory: normal respiratory effort, lungs clear to auscultation Cardiovascular: RRR, no murmur, no edema Heart Sounds: normal S1 and normal S2 Extremities: no edema Gastrointestinal (Abdomen): normal bowel sounds, soft, nontender, no hepatosplenomegaly Musculoskeletal: no cyanosis or clubbing, extremities motor strength 5/5 Skin: no rashes, warm and dry Neurologic: PERRL, EOMI, accommodation nl, no face palsy, no dysarthria Psychiatric: A+Ox3, euthymic affect Results & Data Results & Data Vital Signs (Past 12 Hours) Vital Signs Temp Pulse Pulse Resp BP BP Pulse Ox 07/09/24 23:16 77 07/09/24 23:08 76 18 136/100 07/09/24 23:00 76 22 136/101 H 97 07/09/24 22:45 85 17 135/101 H 07/09/24 22:30 75 18 135/93 07/09/24 22:15 79 16 140/93 99 07/09/24 22:09 36.6 C 79 16 135/94 99 07/09/24 22:00 36.6 C 77 16 135/94 97 07/09/24 21:50 36.6 C 75 14 134/88 96 07/09/24 20:21 36.9 C 07/09/24 20:18 82 22 179/114 H 98 07/09/24 19:54 85 21 172/119 H 98 07/09/24 19:53 75 07/09/24 19:52 75 18 140/88 96 07/09/24 19:51 71 15 132/78 98 07/09/24 19:48 70 14 140/88 98 07/09/24 19:30 71 18 167/101 H 99 07/09/24 19:30 167/101 H 07/09/24 19:21 75 18 142/91 H 96 07/09/24 19:16 151/98 H 07/09/24 19:10 97 07/09/24 19:00 81 16 157/98 H 97 07/09/24 19:00 97 07/09/24 17:19 36.5 C 83 15 174/109 H 95 O2 Del Method 07/09/24 23:16 07/09/24 23:08 Room Air 07/09/24 23:00 Room Air 07/09/24 22:45 Room Air 07/09/24 22:30 Room Air 07/09/24 22:15 Room Air 07/09/24 22:09 Room Air 07/09/24 22:00 Room Air 07/09/24 21:50 Room Air 07/09/24 20:21 Room Air 07/09/24 20:18 Room Air 07/09/24 19:54 Room Air 07/09/24 19:53 07/09/24 19:52 Room Air 07/09/24 19:51 Room Air 07/09/24 19:48 Room Air 07/09/24 19:30 Room Air 07/09/24 19:30 07/09/24 19:21 Room Air 07/09/24 19:16 07/09/24 19:10 Room Air 07/09/24 19:00 Room Air 07/09/24 19:00 Room Air 07/09/24 17:19 Room Air Coding Level of Care Code 55008 IN/OBS CONSULT LVL 2,35M Diagnoses Non-ST elevation FL (NSTEMI) I21.4 Atherogenic dyslipidemia E78.5 Benign essential hypertension I10 Time Spent (min) 42
[2024-07-09] MEDS ORDERED: hydrALAZINE HCL 20 MG/ML VIAL IV PRN (23:36)
[2024-07-10] MEDS: ACETAMINOPHEN 325 MG TAB PO PRN (04:19)
[2024-07-10 06:53] LABS: Chol HDL Ratio 2.8 (0-5); Magnesium 1.9 mg/dl (1.7-2.4); Phosphorus 3.3 mg/dl (2.5-4.9)
--- NOTE | 2024-07-10 07:56 | Critical Care Progress Note ---
Date of Service July 10, 2024 Assessment & Plan (1) Non-ST elevation [place] (NSTEMI): (2) HTN (hypertension): (3) HLD (hyperlipidemia): Plan Impression: 63-year-old male with non-ST elevation myocardial infarction status post urgent cardiac catheterization with stent placement. He is now chest pain- free and doing well clinically. Recommendations: 1. Acute coronary syndrome: Status post stent placement: Management per cardiology. He is chest pain-free. He is currently on appropriate therapy with an CLAUDETTE inhibitor and beta-marley. He is receiving Crestor as well as well as dual antiplatelet therapy in the form of aspirin and Brilinta. 2. Follow-up with echocardiogram. 3. Will need outpatient cardiac rehab. 4. Patient's critical care issues have resolved. He can be transferred out of the intensive care unit with ultimate disposition per cardiology and primary admitting service. Critical care services will sign off. Feel free to contact us with questions or concerns. Admission and Anticipated Discharge Date Admission Date: July 09, 2024 Subjective Patient seen and examined. EMR reviewed. Discussed with bedside critical care nurse and on multidisciplinary rounds. Patient is doing well this morning. He is awake alert and conversant. He is chest pain-free. He is having no shortness of breath. He has an appetite and wants to eat and get up out of bed. He is been hemodynamically stable. His wrist is fine with no paresthesias. Review of Systems Review of Systems: All systems reviewed & are unremarkable except as noted in Subjective Physical Exam Constitutional: WD/WN, vitals as above Neck: trachea midline, no thyromegaly Respiratory: normal respiratory effort, lungs clear to auscultation Cardiovascular: RRR, no murmur, no edema Gastrointestinal (Abdomen): normal bowel sounds, soft, nontender, no hepatosplenomegaly Musculoskeletal: Extremities: extremities normal to inspection Skin: no rashes, warm and dry Neurologic: Nonfocal exam Lymphatic: no cervical lymphadenopathy Results & Data Results & Data Vital Signs (Past 12 Hours) Vital Signs Temp Pulse Pulse Resp BP BP Pulse Ox 07/10/24 07:00 73 12 133/91 99 07/10/24 06:00 83 17 129/86 99 07/10/24 05:00 77 16 113/74 95 07/10/24 04:00 77 12 129/96 98 07/10/24 03:00 36.6 C 90 16 117/80 99 07/10/24 02:00 74 12 129/92 99 07/10/24 01:00 68 20 133/91 97 07/10/24 00:30 74 17 130/84 98 07/10/24 00:22 69 07/10/24 00:00 36.6 C 71 12 140/90 97 07/09/24 23:38 36.6 C 79 14 142/94 H 98 07/09/24 23:16 77 07/09/24 23:15 36.6 C 70 16 139/90 97 07/09/24 23:08 76 18 136/100 07/09/24 23:00 76 22 136/101 H 97 07/09/24 22:45 85 17 135/101 H 07/09/24 22:30 75 18 135/93 07/09/24 22:15 79 16 140/93 99 07/09/24 22:09 36.6 C 79 16 135/94 99 07/09/24 22:00 36.6 C 77 16 135/94 97 07/09/24 21:50 36.6 C 75 14 134/88 96 07/09/24 20:21 36.9 C 07/09/24 20:18 82 22 179/114 H 98 O2 Del Method 07/10/24 07:00 Room Air 07/10/24 06:00 Room Air 07/10/24 05:00 Room Air 07/10/24 04:00 Room Air 07/10/24 03:00 Room Air 07/10/24 02:00 Room Air 07/10/24 01:00 Room Air 07/10/24 00:30 Room Air 07/10/24 00:22 07/10/24 00:00 Room Air 07/09/24 23:38 Room Air 07/09/24 23:16 07/09/24 23:15 Room Air 07/09/24 23:08 Room Air 07/09/24 23:00 Room Air 07/09/24 22:45 Room Air 07/09/24 22:30 Room Air 07/09/24 22:15 Room Air 07/09/24 22:09 Room Air 07/09/24 22:00 Room Air 07/09/24 21:50 Room Air 07/09/24 20:21 Room Air 07/09/24 20:18 Room Air Critical Care Results & Data Vital Signs (Past 12 Hours) Vital Signs Temp Pulse Pulse Resp BP BP Pulse Ox 07/10/24 07:00 73 12 133/91 99 07/10/24 06:00 83 17 129/86 99 07/10/24 05:00 77 16 113/74 95 07/10/24 04:00 77 12 129/96 98 07/10/24 03:00 36.6 C 90 16 117/80 99 07/10/24 02:00 74 12 129/92 99 07/10/24 01:00 68 20 133/91 97 07/10/24 00:30 74 17 130/84 98 07/10/24 00:22 69 07/10/24 00:00 36.6 C 71 12 140/90 97 07/09/24 23:38 36.6 C 79 14 142/94 H 98 07/09/24 23:16 77 07/09/24 23:15 36.6 C 70 16 139/90 97 07/09/24 23:08 76 18 136/100 07/09/24 23:00 76 22 136/101 H 97 07/09/24 22:45 85 17 135/101 H 07/09/24 22:30 75 18 135/93 07/09/24 22:15 79 16 140/93 99 07/09/24 22:09 36.6 C 79 16 135/94 99 07/09/24 22:00 36.6 C 77 16 135/94 97 07/09/24 21:50 36.6 C 75 14 134/88 96 07/09/24 20:21 36.9 C 07/09/24 20:18 82 22 179/114 H 98 O2 Del Method 07/10/24 07:00 Room Air 07/10/24 06:00 Room Air 07/10/24 05:00 Room Air 07/10/24 04:00 Room Air 07/10/24 03:00 Room Air 07/10/24 02:00 Room Air 07/10/24 01:00 Room Air 07/10/24 00:30 Room Air 07/10/24 00:22 07/10/24 00:00 Room Air 07/09/24 23:38 Room Air 07/09/24 23:16 07/09/24 23:15 Room Air 07/09/24 23:08 Room Air 07/09/24 23:00 Room Air 07/09/24 22:45 Room Air 07/09/24 22:30 Room Air 07/09/24 22:15 Room Air 07/09/24 22:09 Room Air 07/09/24 22:00 Room Air 07/09/24 21:50 Room Air 07/09/24 20:21 Room Air 07/09/24 20:18 Room Air Lab & Micro Results (Past 24 Hours) RBC 4.95 M/uL (4.70-6.10) 07/09/24 WBC 8.92 K/ul (4.8-10.8) 07/09/24 Hgb 13.9 g/dl (14.0-18.0) L 07/09/24 Hct 42.2 % (42.0-52.0) 07/09/24 MCV 85.3 fL (80.0-100.0) 07/09/24 MCH 28.1 pg (25.0-34.0) 07/09/24 MCHC 32.9 g/dL (32.0-36.0) 07/09/24 RDW Standard Deviation 40.4 fL (36.4-46.3) 07/09/24 RDW Coefficient of Variation 13.0 % (11.5-14.5) 07/09/24 Plt Count 204 K/uL (130-400) 07/09/24 MPV 10.0 fL (9.4-12.4) 07/09/24 Neutrophils (%) (Auto) 59.8 % 07/09/24 Lymphocytes (%) (Auto) 28.6 % 07/09/24 Monocytes # (Auto) 0.70 K/uL (0.11-0.59) H 07/09/24 Eosinophils # (Auto) 0.26 K/uL (0.00-0.50) 07/09/24 Immature Granulocyte % (Auto) 0.2 % 07/09/24 Neutrophils # (Auto) 5.33 K/uL (1.40-6.50) 07/09/24 Lymphocytes # (Auto) 2.55 K/uL (1.20-3.40) 07/09/24 Monocytes # (Auto) 0.70 K/uL (0.11-0.59) H 07/09/24 Eosinophils # (Auto) 0.26 K/uL (0.00-0.50) 07/09/24 Basophils # (Auto) 0.06 K/uL (0.00-0.20) 07/09/24 Immature Granulocyte # (Auto) 0.02 K/uL (0.01-0.20) 4 Na 137 mmol/L (136-145) 07/09/24 K 3.9 mmol/L (3.5-5.1) 07/09/24 Cl 102 mmol/L (98-107) 07/09/24 CO2 29 mmol/L (21-32) 07/09/24 Anion Gap 6 (3-11) 07/09/24 BUN 15 mg/dl (6-23) 07/09/24 Creatinine 1.12 mg/dl (0.6-1.4) 07/09/24 Estimated GFR ( Amer) 81.7 ml/min 07/09/24 Estimated GFR (Non-Af Amer) 70.5 ml/min 07/09/24 BUN/Creatinine Ratio 13.4 (10-20) 07/09/24 Glu 105 mg/dl (70-99(Fasting)) H 07/09/24 Ca 9.8 mg/dl (8.6-10.3) 07/09/24 Phosphorus Level 3.3 mg/dl (2.5-4.9) 07/10/24 Total Bilirubin 0.5 mg/dl (0.2-1.0) 07/09/24 AST 45 U/L (13-39) H 07/09/24 ALT 24 U/L (7-52) 07/09/24 Alkaline Phosphatase 70 U/L (34-104) 07/09/24 TP 7.6 gm/dl (6.0-8.3) 07/09/24 Albumin 4.5 gm/dl (3.4-5.0) 07/09/24 Globulin 3.1 gm/dl (2.5-4.0) 07/09/24 Albumin/Globulin Ratio 1.5 (0.9-2) 07/09/24 Mg 1.9 mg/dl (1.7-2.4) 07/10/24 06:09 Calcium Level 9.8 mg/dl (8.6-10.3) 07/09/24 17:45 Prothromb Time International Ratio 0.9 (0.9-1.1) 07/09/24 17:4 5 Diagnostic Findings (Past 24 Hours) Chest X-Ray 07/09/24 17:22 XR chest 1V not portable HISTORY: 63 years-old Male Chest pain, nonspecific COMPARISON: None TECHNIQUE: PA view of the chest FINDINGS: Cardiomediastinal silhouettes are within normal limits. No pneumothorax, pleural effusion or airspace consolidation. Spondylitic spurring of the spine. IMPRESSION: No acute process. ACT 112: Negative or not required by law. The above report was generated using voice recognition software. It may contain grammatical, syntax or spelling errors. Electronically signed by: Travis Busby M.D. 07/09/2024 5:39 PM I & O Totals 24 Hours 07/09/24 07/10/24 07/11/24 06:59 06:59 06:59 Intake Total 50.700 / 50.700 Output Total 1100 / 1100 Balance -1049.300 / -1049.300 Cumulative 07/09/24 17:17 thru 07/10/24 06:26 Intake Total 50.700 Output Total 1100 Balance -1049.300 RT Ventilator Mngmt (Last Documented) Ventilator Ordered Settings Respiratory Rate 12 07/10/24 07:00 Ventilator - PT Measurements Respiratory Rate 12 Coding Level of Care Code 01805 SUB INP/OBS CARE 2/35MIN Diagnoses Non-ST elevation [place] (NSTEMI) I21.4 HTN (hypertension) I10 HLD (hyperlipidemia) E78.5
[2024-07-10] MEDS ORDERED: lisinopril 10 MG TAB PO SCH (09:00)
[2024-07-10] MEDS ORDERED: ATORVASTATIN 40 MG TAB PO SCH (09:00)
[2024-07-10] MEDS: lisinopril 10 MG TAB PO SCH (09:05)
[2024-07-10] MEDS: ASPIRIN 81 MG ECTAB PO SCH (09:05)
[2024-07-10] MEDS: ROSUVASTATIN CALCIUM 20 MG TAB PO SCH (09:05)
[2024-07-10] MEDS: METOPROLOL TARTRATE 25 MG TAB PO SCH (09:05)
[2024-07-10] MEDS: TICAGRELOR 90 MG TAB PO SCH (09:06)
[2024-07-10] MEDS: SERTRALINE HCL 50 MG TABLET PO SCH (10:47)
[2024-07-10] MEDS: SERTRALINE HCL 100 MG TABLET PO SCH (11:15)
--- NOTE | 2024-07-10 12:01 | XCELERA ---
[id number] [id number]
--- NOTE | 2024-07-10 12:14 | Cardiology Progress Note ---
Date of Service July 10, 2024 Assessment & Plan (1) Non-ST elevation [place] (NSTEMI): Plan: Status post PCI of the LAD and circumflex. Troponin trending up awaiting next results. Echocardiogram with preserved LVEF, mild MR, and no significant wall motion abnormalities. He will remain on dual antiplatelet therapy with aspirin 81 mg daily and Brilinta 90 mg p.o. twice daily. Cardiac rehab should be arranged for his participation after discharge. (2) Coronary artery disease with angina pectoris: Plan: Heart rate and blood pressure are at target. Continue metoprolol tartrate 25 mg p.o. twice daily, lisinopril 10 mg daily, aspirin 81 mg daily, and rosuvastatin 40 mg daily. (3) Atherogenic dyslipidemia: Plan: LDL 57, HDL 49. These are each at target. Continue atorvastatin 40 mg daily. Encourage low-fat low-cholesterol diet and regular cardiovascular exercise. (4) Benign essential hypertension: Plan: Blood pressure is not controlled. We have continued lisinopril and added metoprolol to tartrate. Hydralazine was also added as needed but has not been required. Plan Assuming no additional problems arise he will be appropriate for discharge tomorrow. He wishes to follow with cardiology in [place]. Cardiac rehab should also be arranged for him locally. Admission and Anticipated Discharge Date Admission Date: July 09, 2024 Subjective Patient did well overnight. Denies any recurrence of chest pain heaviness or tightness. Mild residual left shoulder pain but no radiation down the arm. Denies dyspnea. Tolerating his medications without other complaint. Review of Systems Review of Systems: Negative except as per HPI Physical Exam Constitutional: WD/WN, vitals as above Eyes: Extraocular muscle intact. Sclera are anicteric. ENMT: Oral mucosa is pink moist and intact Neck: Thick. No JVD. Respiratory: Clear to auscultation bilaterally. No wheezing, rhonchi, or rales. Cardiovascular: Regular rate and rhythm. S4 gallop. Do not appreciate any rubs or murmurs. Musculoskeletal: no cyanosis or clubbing, extremities motor strength 5/5 (Right radial access clean dry and intact. Good distal perfusion) Neurologic: Cognition is intact. Speech is fluent. No focal deficits. Ambulates normally. Psychiatric: A+Ox3, euthymic affect Results & Data Vital Signs (Past 12 Hours) Vital Signs Temp Pulse Pulse Resp BP BP Pulse Ox 07/10/24 10:15 72 16 133/86 97 07/10/24 08:06 85 18 100 07/10/24 08:00 163/93 H 07/10/24 08:00 74 07/10/24 08:00 36.5 C 07/10/24 07:00 73 12 133/91 99 07/10/24 06:00 83 17 129/86 99 07/10/24 05:00 77 16 113/74 95 07/10/24 04:00 77 12 129/96 98 07/10/24 03:00 36.6 C 90 16 117/80 99 07/10/24 02:00 74 12 129/92 99 07/10/24 01:00 68 20 133/91 97 07/10/24 00:30 74 17 130/84 98 07/10/24 00:22 69 O2 Del Method 07/10/24 10:15 07/10/24 08:06 07/10/24 08:00 07/10/24 08:00 07/10/24 08:00 07/10/24 07:00 Room Air 07/10/24 06:00 Room Air 07/10/24 05:00 Room Air 07/10/24 04:00 Room Air 07/10/24 03:00 Room Air 07/10/24 02:00 Room Air 07/10/24 01:00 Room Air 07/10/24 00:30 Room Air 07/10/24 00:22 PG Care Time/CCT Total # of Minutes Spent Total Time Spent with Patient: Total time spent is greater than 50% in coordination of care (as documented) at patient's floor/unit and/or counseling patient: Coding Level of Care Code 47488 SUB INP/OBS CARE 2/35MIN Diagnoses Non-ST elevation NH (NSTEMI) I21.4 Coronary artery disease with angina pectoris I25.119 Atherogenic dyslipidemia E78.5 Benign essential hypertension I10
--- NOTE | 2024-07-10 12:21 | Electrocardiogram Report ---
Test Reason : Blood Pressure : */* mmHG Vent. Rate : 75 BPM Atrial Rate : 75 BPM P-R Int : 148 ms QRS Dur : 82 ms QT Int : 412 ms P-R-T Axes : * 48 120 degrees QTcB Int : 460 ms Normal sinus rhythm Nonspecific T wave abnormality Abnormal ECG When compared with ECG of 09-Jul-2024 18:51, (unconfirmed) Premature supraventricular complexes are no longer Present Confirmed by Rj Gallardo ([id number]) on 07/10/2024 12:21:37 PM Referred By: REFERRED SELF Confirmed By: Rj Gallardo
--- NOTE | 2024-07-10 12:23 | Electrocardiogram Report ---
Test Reason : Blood Pressure : */* mmHG Vent. Rate : 77 BPM Atrial Rate : 77 BPM P-R Int : 152 ms QRS Dur : 84 ms QT Int : 438 ms P-R-T Axes : 45 40 30 degrees QTcB Int : 495 ms Sinus bradycardia Prolonged QT Abnormal ECG When compared with ECG of 09-Jul-2024 19:53, No significant change Confirmed by Rj Gallardo ([id number]) on 07/10/2024 12:23:27 PM Referred By: REFERRED SELF Confirmed By: Rj Gallardo
--- NOTE | 2024-07-10 12:24 | Electrocardiogram Report ---
Test Reason : Blood Pressure : */* mmHG Vent. Rate : 77 BPM Atrial Rate : 77 BPM P-R Int : 150 ms QRS Dur : 78 ms QT Int : 400 ms P-R-T Axes : 57 26 67 degrees QTcB Int : 452 ms Sinus rhythm with Premature supraventricular complexes Nonspecific ST abnormality Abnormal ECG When compared with ECG of 26-Nov-2020 13:13, Premature ventricular complexes are no longer Present Premature supraventricular complexes are now Present Confirmed by Rj Gallardo ([id number]) on 07/10/2024 12:24:41 PM Referred By: REFERRED SELF Confirmed By: Rj Gallardo
--- NOTE | 2024-07-10 13:59 | Hospitalist Progress Note ---
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 Worsening discomfort with activity prior to arrival. Discomfort relieved by aspirin and nitroglycerin administration in the ED. He is being managed for the following: NSTEMI: Status post PCI to the LAD and circumflex 07/09/2024. Follow-up echocardiogram with preserved ejection fraction and no significant wall motion abnormalities. Patient with no chest pain. Continue with DAPT with aspirin and Brilinta, continue with rosuvastatin and metoprolol. Patient was initially scheduled for surgery on July 26 for his left shoulder, given his recent stenting, it would be prudent to postpone his elective surgery. Patient has been advised to communicate with his orthopedic physician. Patient had been made aware that he not to miss any doses of aspirin or Plavix without consulting his cardiology. Patient to establish and follow-up with cardiology within 2 weeks time upon discharge, patient voiced that he would like to follow- up with cardiology locally at [place]. Patient to establish with cardiac rehab on discharge. Other chronic medical conditions: HTN, HLD , mood/anxiety disorder: Continue with/resume home meds as when able DVT prophylaxis: Heparin subcu Full code Likely DC tomorrow. Admission and Anticipated Discharge Date Admission Date: July 09, 2024 Subjective Patient was seen and examined at bedside. Patient was lying in bed, on room air, NAD, resting comfortably. Patient denies shortness of breath or chest pain or palpitation. Patient reports feeling better. Patient states that he takes sertraline 100 mg daily and would like it resumed, ordered. Physical Exam Physical Exam: GENERAL: Alert and oriented x3. NAD, on RA. HEENT: No pallor, no icterus. Pupils equal, round and reactive to light. Oral mucosa moist. NECK: No JVD, no neck masses. HEART: S1 and S2 heard. Regular rate and rhythm. No murmur, no gallop. RESPIRATORY SYSTEM: Normal AP diameter. No accessory muscle use. No wheezing, no crackles. ABDOMEN: Soft, bowel sounds present, nontender, no distention. CENTRAL NERVOUS SYSTEM: No facial droop. Speech is clear. Obeys simple commands. Moves extremities. EXTREMITIES: No edema, no erythema seen. Results & Data Results & Data Vital Signs (Past 12 Hours) Vital Signs Temp Pulse Pulse Resp BP BP Pulse Ox 07/10/24 13:03 74 15 07/10/24 12:39 74 22 97 07/10/24 12:39 115/75 07/10/24 10:15 72 16 133/86 97 07/10/24 08:06 85 18 100 07/10/24 08:00 163/93 H 07/10/24 08:00 74 07/10/24 08:00 36.5 C 07/10/24 07:00 73 12 133/91 99 07/10/24 06:00 83 17 129/86 99 07/10/24 05:00 77 16 113/74 95 07/10/24 04:00 77 12 129/96 98 07/10/24 03:00 36.6 C 90 16 117/80 99 07/10/24 02:00 74 12 129/92 99 O2 Del Method 07/10/24 13:03 07/10/24 12:39 07/10/24 12:39 07/10/24 10:15 07/10/24 08:06 07/10/24 08:00 07/10/24 08:00 07/10/24 08:00 07/10/24 07:00 Room Air 07/10/24 06:00 Room Air 07/10/24 05:00 Room Air 07/10/24 04:00 Room Air 07/10/24 03:00 Room Air 07/10/24 02:00 Room Air
[2024-07-10 23:08] LABS: Basophils # (auto) 0.04 K/uL (0.00-0.20); Basophils % (auto) 0.6 %; Eosinophils # (auto) 0.26 K/uL (0.00-0.50); Eosinophils % (auto) 3.7 %; Hematocrit (blood only) 39.7 % (42.0-52.0); Hemoglobin 13.2 g/dl (14.0-18.0); Immature Granulocytes # (auto) 0.01 K/uL (0.01-0.20); Immature Granulocytes % (auto) 0.1 %; Lymphocytes # (auto) 2.02 K/uL (1.20-3.40); Lymphocytes % (auto) 28.6 %; Mean Corpuscular Hemoglobin 28.4 pg (25.0-34.0); Mean Corpuscular Hgb Conc 33.2 g/dL (32.0-36.0); Mean Corpuscular Volume 85.4 fL (80.0-100.0); Monocytes # (auto) 0.72 K/uL (0.11-0.59); Monocytes % (auto) 10.2 %; Neutrophils # (auto) 4.02 K/uL (1.40-6.50); Neutrophils % (auto) 56.8 %; Platelet Count 183 K/uL (130-400); RDW Standard Deviation 40.1 fL (36.4-46.3); Red Blood Count 4.65 M/uL (4.70-6.10); White Blood Count 7.07 K/ul (4.8-10.8)
[2024-07-11 05:31] LABS: BUN Creatinine Ratio 11.3 (10-20); Calcium 9.4 mg/dl (8.6-10.3); Creatinine Clr Calc Pharmacy 90.7 ml/min; Est GFR (African American) 87.4 ml/min; Est GFR (Non-African American) 75.4 ml/min; Magnesium 2.1 mg/dl (1.7-2.4); Phosphorus 3.6 mg/dl (2.5-4.9); Potassium 4.2 mmol/L (3.5-5.1)
[2024-07-11 07:35] VITALS: RESP 19; TEMP 98.2; O2SAT 98
[2024-07-11 10:40] VITALS: BP 119/77; PULSE 78
--- NOTE | 2024-07-11 11:58 | Discharge Summary ---
Date of Service July 11, 2024 Admission HPI Per Admitting Provider History obtained from patient and records. Medical history significant for hypertension, hyperlipidemia, anxiety/mood disorder. 2 days history of achy left-sided chest pain going to the shoulder associated with shortness of breath. No cough, no fever, no chills. Different from usual shoulder pain for which patient is scheduled to go for elective surgery next month. Worsening discomfort while attending a wedding this afternoon. SBP 170s upon arrival at the ER. Discomfort relieved by aspirin and nitroglycerin administration at the ER. IV heparin initiated at the ER. Heart alert called for recurrent chest pain as per on-call pinsetter mechanic helper recommendations. 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 Admission Exam Per Admitting Provider GENERAL: Comfortable, pleasant, obese, no respiratory distress SKIN: Normal color, warm HEENT: Alopecia, [place] palpebral conjunctivae, no ptosis, moist buccal mucosa NECK : Supple, no tenderness CHEST : CTA, no tenderness HEART : RRR, no obvious murmurs ABDOMEN: Some distention, nontender EXTREMITIES : No LE swelling/tenderness, no other conspicuous deformities noted NEUROLOGIC : Coherent, no facial asymmetry, no other gross focality Principal Diagnosis Non-ST elevation IA PCI of LAD and circumflex Atherogenic dyslipidemia Hypertension Discharge Exam GENERAL: Alert and oriented x3. NAD, on RA. HEENT: No pallor, no icterus. Pupils equal, round and reactive to light. Oral mucosa moist. NECK: No JVD, no neck masses. HEART: S1 and S2 heard. Regular rate and rhythm. No murmur, no gallop. RESPIRATORY SYSTEM: Normal AP diameter. No accessory muscle use. No wheezing, no crackles. ABDOMEN: Soft, bowel sounds present, nontender, no distention. CENTRAL NERVOUS SYSTEM: No facial droop. Speech is clear. Obeys simple comma nds. Moves extremities. EXTREMITIES: No edema, no erythema seen. Discharge Data Allergies Allergy/AdvReac Type Severity Reaction Status Date / Time No Known Allergies Allergy Verified 07/09/24 19:12 Consultations 07/09/24 19:06 ED Decision to Admit Stat 07/09/24 21:35 Consult Canvas Cutter Machine Routine 07/09/24 21:58 Consult Cardiac Rehabilitation Routine 07/09/24 22:35 Consult Cardiology Routine Procedures Performed Operation Date: 07/09/24 20:10 Actual Procedures p Aspiration/PCI w/ABISAI for Stemi(Right) - Jez Mckeon MD, PhD s Ultrasound Vascular Access - Jez Mckeon MD, PhD Ordered Studies 07/09/24 20:11 CL Cath Imgs for PACS use only Stat Hospital Course (1) Non-ST elevation IA (NSTEMI): Plan 63-year-old male with PMH of hypertension, hyperlipidemia, anxiety/mood disorder presented to the ED with complaint of left-sided 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 Worsening discomfort with activity prior to arrival. Discomfort relieved by aspirin and nitroglycerin administration in the ED. He was managed for the following: NSTEMI: Status post PCI to the LAD and circumflex 07/09/2024. Follow-up echocardiogram with preserved ejection fraction and no significant wall motion abnormalities. Patient with no chest pain. Continue with DAPT with aspirin and Brilinta, continue with rosuvastatin and metoprolol. Patient was initially scheduled for surgery on July 26 for his left shoulder, given his recent stenting, it would be prudent to postpone his elective surgery. Patient has been advised to communicate with his orthopedic physician. Patient had been made aware that he not to miss any doses of aspirin or Plavix without consulting his cardiology. Patient to establish and follow-up with cardiology within 2 weeks time upon discharge, patient voiced that he would like to follow- up with cardiology locally at [place]. Patient to establish with cardiac rehab on discharge. He has been re-educated today. Other chronic medical conditions: HTN, HLD , mood/anxiety disorder: Continue with/resume home meds as when able DVT prophylaxis: Heparin subcu Full code Home Health Attestation I certify that this patient is under my care and that I, or a physicians assistant sales center manager working with me, had a face to-face encounter that meets the home health [id number] encounter requirements with this patient. The encounter with the patient was in whole, or in part, for the following medical condition, which is the primary reason for home health care (list medical condition): I certify that, based on my findings, the following services are medically necessary home health services: My clinical findings support the need for the above services because: Further, I certify that my clinical findings support that this patient is homebound (i.e. absences from home require considerable and taxing effort and are for medical reasons or adventism services or infrequently or of short duration when for other reasons) because: Certification for Home Health Services: Based on the above findings, I certify that this patient is confined to the home and needs intermittent retirement care, physical therapy and/or speech therapy or continues to need occupational therapy. The patient is under my care, and I have initiated the establishment of the plan of care. This patient will be followed by a physician who will periodically review the plan of care. Total Time Total Time Spent Total Time Spent (In Minutes): 35 Discharge Plan Discharge Items Patient Disposition: Home - Self-Care Reason For Visit: ACS Discharge Diagnosis: Non-ST elevation IA PCI of LAD and circumflex Atherogenic dyslipidemia Hypertension Activity: Per Instructions section Non-emergency contact: Artificial Insemination Technician Call non-emergency contact if: you have any medication questions, your symptoms worsen, your pain is not controlled, you have a fever, your wound has increased redness and your wound has increased drainage Follow-up/Referrals: Jez Mckeon MD, PhD [Physician] - Carrie Pitts CRNP [Primary Care Provider] - (The [place] office was made aware of your discharge and will contact you for a follow up appointment.) Diet: Heart Healthy Addtl Attending Provider Instructions: ACTIVITY RECOMMENDATIONS: It is common to feel weak and fatigue for a few days. * Do not drive or operate any motorized equipment for the next three days. * Limit stair usage (2 or 3 trips a day only) for the next three days. * Do not lift anything heavier than 10 pounds for the next three days. * Do not engage in vigorous exercise or any sports for the next five days. * You may shower the day after your procedure, but do not immerse the area for three days. Cleanse the site gently with soap and water. SPECIAL CARE INSTRUCTIONS: * You may replace the pressure dressing or band-aid the morning after the procedure. * After your procedure, it is normal to have a small bruise or small lump at the site. Examine your site daily for any change in the bruise or lump, redness, swelling, drainage or numbness. Notify your doctor if any change. BLEEDING: * If there is a small amount of bleeding at the site, lie down and apply firm pressure with a clean cloth for ten minutes. When the bleeding stops, lie quietly keeping the procedure limb straight for six hours. Notify your doctor as soon as possible. * If the bleeding does not stop after ten minutes or if there is a large amount of bleeding or spurting, call 911 immediately. Continue to lie down and hold firm pressure until help arrives. SKIN IRRITATION: * You may experience some redness and/or swelling in the area where radiation was administered. If any skin irritation occurs, please contact your family physician. FOLLOW UP VISIT: Keep any scheduled doctor appointments. Pending Studies at Discharge: No Stand-Alone Forms: My [facility] [employer], Smoking Cessation Medications and DC Order Prescriptions: New nitroglycerin [Nitrostat] 0.4 mg Tablet, Sublingual 0.4 mg sublingual Q5M PRN (Reason: chest pain) Qty: 25 3RF Rx Instructions: 1 tab every five minutes up to 3 tabs for Chest pain. metoprolol tartrate 25 mg Tablet 25 mg PO BID Qty: 180 3RF Brilinta 90 mg Tablet 90 mg PO BID Qty: 180 3RF Continued omeprazole 20 mg Tablet,Delayed Release (Dr/Ec) 20 mg PO DAILY PRN (Reason: gerd) aspirin 81 mg tablet,delayed release (DR/EC) 81 mg PO DAILY lisinopril 10 mg tablet 10 mg PO QAM Qty: 90 3RF rosuvastatin 40 mg tablet 40 mg PO QAM Qty: 90 3RF Discontinued lidocaine 5 % adhesive patch,medicated 1 patch topical DAILY PRN (Reason: SHOULDER PAIN) Rx Instructions: APPLY FOR 12 HOURS THEN REMOVE Discharge Orders: Discharge Order (Routine); Ordered 07/11/24 Ordered By: Anthony Izquierdo Admission Data Admit Date/Time: 07/09/24 20:02 Attending Provider: Anthony Izquierdo Admit Provider: Boris Soliman Primary Care Provider: Carrie Pitts Other Providers: Boris Soliman; Adilson Way; Jez Mckeon Other Interventions: Discharge Summary Assessment (RN) Last Done: 07/11/24 10:13
== END 2024-07-11 12:29 | disposition home or self-care (01) | DRG 322 ==
LOC: ED 17:17 → CC 20:21 → 1E 20:22 → CC 20:35

== ENCOUNTER 2025-02-26 12:44 | Observation (INO) ==
[2025-02-26 13:14] LABS: Basophils # (auto) 0.05 K/uL (0.00-0.20); Basophils % (auto) 0.7 %; Eosinophils # (auto) 0.22 K/uL (0.00-0.50); Eosinophils % (auto) 2.9 %; Hematocrit (blood only) 42.7 % (42.0-52.0); Hemoglobin 14.5 g/dl (14.0-18.0); Immature Granulocytes # (auto) 0.02 K/uL (0.01-0.20); Immature Granulocytes % (auto) 0.3 %; Lymphocytes # (auto) 2.03 K/uL (1.20-3.40); Lymphocytes % (auto) 27.1 %; Mean Corpuscular Hemoglobin 28.7 pg (25.0-34.0); Mean Corpuscular Volume 84.4 fL (80.0-100.0); Mean Platelet Volume 9.5 fL (9.4-12.4); Monocytes # (auto) 0.59 K/uL (0.11-0.59); Monocytes % (auto) 7.9 %; Neutrophils # (auto) 4.59 K/uL (1.40-6.50); Neutrophils % (auto) 61.1 %; Platelet Count 232 K/uL (130-400); RDW Coefficient of Variation 12.5 % (11.5-14.5); RDW Standard Deviation 37.8 fL (36.4-46.3); Red Blood Count 5.06 M/uL (4.70-6.10)
--- NOTE | 2025-02-26 13:14 | Emergency Department Note ---
Impression & Plan Precordial chest pain, CHAMPAGNE (dyspnea on exertion), History of IA (myocardial infarction) ED Provider Note NAME: KAREN VILLANUEVA AGE: 64 SEX: M : 1960 ARRIVES VIA: Walk-In INFORMANT: [Patient] ED PROVIDER(S): [Gil Anderson MD] CHIEF COMPLAINT: Chest pain HISTORY OF PRESENT ILLNESS: The patient is a 64-year-old male who had 3 coronary stents placed in June of last year. He does take aspirin as well as metoprolol. The patient states that for a few days, he has noticed some discomfort in his chest and left shoulder similar to the the pain from his heart attack requiring his stent placement. He did take 1 nitroglycerin but did not think it made much difference. He has noticed some dyspnea on exertion and some increased fatigue. There has been no cough or congestion. He has not had fever. No sweating, no nausea or vomiting. PMHx/PSHx/Social Hx: See Below PHYSICAL EXAM: GENERAL: Patient is in no acute distress. HEENT: No acute trauma, normocephalic atraumatic, mucous membranes moist, no nasal congestion. NECK: No stridor, no adenopathy, no meningismus, trachea is midline. LUNGS: Clear to auscultation bilaterally, no wheeze, no rhonchi, breath sounds equal. HEART: Without murmurs gallops or rubs, regular rate and rhythm. Chest: Nontender chest wall. ABDOMEN: Soft, nontender, no peritonitis. EXTREMITIES: No cyanosis, full range of motion of all the joints without pain or difficulty. NEUROLOGIC: Oriented x 3, no acute motor or sensory deficits, no focal weakness. SKIN: No jaundice, no diaphoresis. DIFFERENTIAL DIAGNOSIS: IA, angina, anemia, musculoskeletal pain, pneumonia, among others. EMERGENCY DEPARTMENT PROCEDURES: MEDICAL DECISION MAKING: There is no leukocytosis or concerning anemia. There is a normal platelet count. No bandemia. No coagulopathy. No renal failure or significant electrolyte abnormality. No concerning liver enzyme elevation. ECG shows a sinus rhythm, no obvious ischemia. Cardiac enzyme testing x 1 is not consistent with acute cardiac injury. Chest x-ray does not show mediastinal widening, pneumonia or pneumothorax. On exam, the patient did not have any reproducible pain by palpation but complained of some mild discomfort across the chest and left shoulder. The patient was given nitroglycerin paste, his pain resolved. The patient presents with chest discomfort reminiscent of his recent IA. Cardiac workup today is unrevealing. Given the circumstances, angina is a concern. Hospitalization was felt warranted. I did speak with on-call cardiology, I did speak with case management, the on- call hospitalist was consulted. The patient is aware of his findings and the reasoning for a hospital stay. Prior/Outside records/notes reviewed: Discharge summary note from 07/11/2024 describing his presentation, hospital course and plan at discharge. ECG per my interpretation: Indication was chest pain. The ECG shows a normal sinus rhythm with a rate of 71. There is no ST elevation, no PVCs. The QTc is 428. Continuous Cardiac Monitoring per my interpretation: An order was placed for continuous cardiac monitoring. The monitor shows a rate of 78 with normal sinus rhythm. Imaging/x-ray results per my interpretation: Chest x-ray does not show mediastinal widening, pneumonia or pneumothorax. Chronic Medical/Social conditions affecting care: History of coronary artery disease with recent IA and stent placement. Care/Management discussed with: Case management, the on-call hospitalist. [facility] cardiology-Dr. Bullard. 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 Bunionette of right foot Hallux valgus (acquired), right foot Encounter for pre-operative examination Medical History Non-ST elevation IA (NSTEMI) History of COVID-19 11/01/20 [facility]; congestion, loss of taste/smell; denies lingering symptoms Acid reflux Tinnitus Hearing deficit BL Depression HLD (hyperlipidemia) HTN (hypertension) Surgical History History of surgical removal of ganglion cyst History of tonsillectomy History of arthroscopy of right knee History of arthroscopy of left knee History of foot surgery History of colonoscopy Family History Other No family history of adverse response to anesthesia Social History Smoking Status: Never smoker Second Hand Exposure: No; Do You Dip or Chew Tobacco: No; Hx Alcohol Use: Yes Alcohol type: beer Hx Substance Use: No Preferred Language: [place] Communication Ability: Effective Visual Impairment: No Limitations Belt Weaver Required: No Beliefs That Will Affect Care: None Current Living Situation: Spouse Feels Safe at Home: Yes Assistive Devices: None Allergies Allergies Allergy/AdvReac Type Severity Reaction Status Date / Time No Known Allergies Allergy Verified 11/03/24 09:52 Home Meds Home Medications Medication Instructions Recorded Confirmed omeprazole 20 mg tablet,delayed 20 mg PO DAILY PRN gerd 02/15/21 11/03/24 release aspirin 81 mg tablet,delayed 81 mg PO DAILY 07/09/24 11/03/24 release semaglutide (weight loss) 1 mg/0.5 1 mg subcut Q7D 11/03/24 11/03/24 mL subcutaneous pen injector (Wegovy) Previous Rx's Medication Instructions Recorded lisinopril 10 mg tablet 10 mg PO QAM #90 tabs 07/10/24 metoprolol tartrate 25 mg tablet 25 mg PO BID #180 tabs 07/10/24 nitroglycerin 0.4 mg sublingual 0.4 mg sublingual Q5M PRN chest 07/10/24 tablet (Nitrostat) pain #25 tabs rosuvastatin 40 mg tablet 40 mg PO QAM #90 tabs 07/10/24 ticagrelor 90 mg tablet (Brilinta) 90 mg PO BID #180 tabs 07/10/24 Results & Data (ED) Vital Signs Vital Signs - 24 hr 02/26/25 12:46 02/26/25 13:16 02/26/25 13:26 Temperature 36.9 C Temperature Source Temporal Artery Scan Pulse Rate 78 69 Respiratory Rate 16 Respiratory Effort / Characteristics Non-Labored Respiratory Depth Normal Respiratory Pattern Regular Blood Pressure 146/84 H Blood Pressure Mean 104 Pulse Oximetry 96 Oxygen Delivery Method Room Air Room Air Sepsis Recent Fever Within 48 Hours No Sepsis New/Unexplained Change in Mental Status N/A Sepsis Action Taken by Nursing No Action Required Home Medications Current Medication List: was personally reviewed by me Laboratory Data Attestation: I reviewed the patient's lab results. 02/26/25 13:00 02/26/25 13:00 Lab Results 02/26/25 Range/Units 13:00 WBC 7.50 (4.8-10.8) K/ul RBC 5.06 (4.70-6.10) M/uL Hgb 14.5 (14.0-18.0) g/dl Hct 42.7 (42.0-52.0) % MCV 84.4 (80.0-100.0) fL MCH 28.7 (25.0-34.0) pg MCHC 34.0 (32.0-36.0) g/dL RDW Std Deviation 37.8 (36.4-46.3) fL RDW Coeff of Yamel 12.5 (11.5-14.5) % Plt Count 232 (130-400) K/uL MPV 9.5 (9.4-12.4) fL Immature Gran % (Auto) 0.3 % Neut % (Auto) 61.1 % Lymph % (Auto) 27.1 % [place] % (Auto) 7.9 % Eos % (Auto) 2.9 % Baso % (Auto) 0.7 % Neut # (Auto) 4.59 (1.40-6.50) K/uL Lymph # (Auto) 2.03 (1.20-3.40) K/uL [place] # (Auto) 0.59 (0.11-0.59) K/uL Eos # (Auto) 0.22 (0.00-0.50) K/uL Baso # (Auto) 0.05 (0.00-0.20) K/uL Immature Gran # (Auto) 0.02 (0.01-0.20) K/uL PT 10.5 (9.0-12.0) Seconds INR 1.0 (0.9-1.1) APTT 28 (21-31) Seconds PTT Ratio 1.0 Sodium 137 (136-145) mmol/L Potassium 4.1 (3.5-5.1) mmol/L Chloride 104 (98-107) mmol/L Carbon Dioxide 26 (21-32) mmol/L Anion Gap 7 (3-11) BUN 20 (6-23) mg/dl Creatinine 1.00 (0.6-1.4) mg/dl Est Cr Clr Drug Dosing 94.8 ml/min eGFR 85.10 BUN/Creatinine Ratio 20.0 (10-20) Glucose 89 (70-99(Fasting)) mg/dl Calcium 9.6 (8.6-10.3) mg/dl Magnesium 1.9 (1.7-2.4) mg/dl Total Bilirubin 0.8 (0.2-1.0) mg/dl AST 23 (13-39) U/L ALT 24 (7-52) U/L Alkaline Phosphatase 53 (34-104) U/L Troponin I High Sens 3.2 (0-20) pg/ml Total Protein 8.0 (6.0-8.3) gm/dl Albumin 4.7 (3.4-5.0) gm/dl Globulin 3.3 (2.5-4.0) gm/dl Albumin/Globulin Ratio 1.4 (0.9-2) Administered Medications Discontinued Medications Nitroglycerin (Nitroglycerin 2% Ointment 30gm Tube) 1 inch EXT NOW STA Stop: 02/26/25 13:09 Last Admin: 02/26/25 13:22 Dose: 1 inch Documented By: CEF Imaging Data Radiologist's Impression: Chest X-Ray 02/26/25 12:49 XR chest 1V not portable CLINICAL HISTORY: Chest pain, nonspecific COMPARISON STUDY: 07/09/2024 FINDINGS: Heart size and pulmonary vasculature are normal. No effusion, consolidation, or pneumothorax. IMPRESSION: No acute findings. ACT 112: Negative or not required by law. Electronically signed by: Cruzito Marte M.D. 02/26/2025 1:32 PM Discharge Plan Visit Data Chief Complaint: Chest Pain Stated Complaint: CHEST PAIN, SHOULDER PAIN, RECENT HEART ATTACK ED Provider: Gil Anderson Discharge Problem: Precordial chest pain, CHAMPAGNE (dyspnea on exertion), History of IA (myocardial infarction) Patient Disposition: Admitted As Inpatient Condition: Fair Forms Stand Alone Forms: [facility] [place] Prescriptions Prescriptions: No Action Wegovy 1 mg/0.5 mL pen injector 1 mg subcut Q7D omeprazole 20 mg Tablet,Delayed Release (Dr/Ec) 20 mg PO DAILY PRN (Reason: gerd) aspirin 81 mg tablet,delayed release (DR/EC) 81 mg PO DAILY nitroglycerin [Nitrostat] 0.4 mg Tablet, Sublingual 0.4 mg sublingual Q5M PRN (Reason: chest pain) Qty: 25 3RF Rx Instructions: 1 tab every five minutes up to 3 tabs for Chest pain. metoprolol tartrate 25 mg Tablet 25 mg PO BID Qty: 180 3RF Brilinta 90 mg Tablet 90 mg PO BID Qty: 180 3RF lisinopril 10 mg tablet 10 mg PO QAM Qty: 90 3RF rosuvastatin 40 mg tablet 40 mg PO QAM Qty: 90 3RF Referrals Referrals: Carrie Pitts CRNP [Primary Care Provider] -
[2025-02-26] MEDS: NITROGLYCERIN 2% OINTMENT 30GM TUBE EXT STA (13:22)
--- NOTE | 2025-02-26 13:33 | XRay Report ---
XR chest 1V not portable CLINICAL HISTORY: Chest pain, nonspecific COMPARISON STUDY: 07/09/2024 FINDINGS: Heart size and pulmonary vasculature are normal. No effusion, consolidation, or pneumothora x. IMPRESSION: No acute findings. ACT 112: Negative or not required by law. Electronically signed by: Cruzito Marte M.D. 02/26/2025 1:32 PM
[2025-02-26 13:35] LABS: Albumin Globulin Ratio 1.4 (0.9-2); Albumin Level 4.7 gm/dl (3.4-5.0); Bilirubin,Total 0.8 mg/dl (0.2-1.0); Calcium 9.6 mg/dl (8.6-10.3); Creatinine Clr Calc Pharmacy 94.8 ml/min; Globulin 3.3 gm/dl (2.5-4.0); Magnesium 1.9 mg/dl (1.7-2.4); Potassium 4.1 mmol/L (3.5-5.1)
[2025-02-26 13:42] LABS: Partial Thromboplastin Time 28 Seconds (21-31); Prothrombin Time 10.5 Seconds (9.0-12.0); Troponin I High Sensitivity 3.2 pg/ml (0-20)
--- NOTE | 2025-02-26 14:16 | History & Physical Report ---
Date of Service February 26, 2025 Assessment & Plan (1) CHAMPAGNE (dyspnea on exertion): (2) Precordial chest pain: (3) History of CT (myocardial infarction): (4) Benign essential hypertension: (5) Atherogenic dyslipidemia: (6) Coronary artery disease with angina pectoris: Plan This is a 64 y/o male with prior NSTEMI in Jul 12 s/p stent x 3, HTN, dyslipidemia, GERD, and other history as outlined below who presents to the ED with left shoulder and chest pain that started two days ago. Associated dyspnea with exertion and increasing palpitations. Work-up in the revealed a normal troponin, EKG negative for ischemic changes (personally reviewed), and chest x- ray without acute disease. Pt was referred for admission for observation and further work-up. #Chest pain #Exertional dyspnea #CAD/hx CT s/p stent x 3 - Observe in PCU overnight - Trend troponin - Repeat EKG in the AM and prn for chest pain - ECHO - Lipid panel, A1c in the AM - Consult cardiology - will make pt NPO at midnight in case additional testing/intervention needed in AM - Continue asprin/Brilinta #Hypertension - BP currently controlled in the ED - Continue lisinopril, metoprolol tartrate and monitor #Dyslipidemia - Lipid panel in AM - Continue statin #GERD - Uses prn omeprazole at home but rarely takes - denies need for at present After originally evaluated patient, called by ED RN due to increasing palpitations and runs of PVCs on the monitor. Re-evaluated pt who reports palpitations increasing in frequency. EKG repeated in the ED and reviewed with initial EKG - no significant change noted. Rhythm strip sent to cardiology on- call for review - spoke with Dr. Bullard who recommended dose of mag, continued observation. Will also check stat troponin and continue to monitor. Pt seen and reviewed with collaborating physician, Dr. Morfin. Plan of care discussed and as outlined above. Code status: full code DVT prophylaxis: Martha Otto PA-C History of Present Illness Chief Complaint: chest pain Primary Care Provider: ERIC Cruz This is a 64 y/o male with prior NSTEMI in Jul 12 s/p stent x 3, HTN, dyslipidemia, GERD, and other history as outlined below who presents to the ED with left shoulder and chest pain that started two days ago. This pain started while he was cutting up a tree and has persisted since it started. He has also noted dyspnea with exertion - was cleaning out the hot tub today and got short of breath, which is new for him. This pain feels similar to prior CT, rates as moderate in severity but less severe than with CT. Has been more fatigued than usual. Denies fevers, sweats, N/V/D, abdominal pain, cough, congestion. Noted heartburn last night so took two antacids with relief - this felt different than the chest pain. Tried nitro for pain yesterday without relief. Since cardiac stents placed, he has had occasional palpitations described as a "lump" in his chest, sensation of skipping beats. However, these palpitations have been increasing in frequency over the last two days, since the pain started. The pain may get worse when he has palpitations. Denies associated lightheadedness, syncope. Allergies Allergy/AdvReac Type Severity Reaction Status Date / Time No Known Allergies Allergy Verified 11/03/24 09:52 Home Medications Medication Instructions Recorded Confirmed Type omeprazole 20 mg tablet,delayed 20 mg PO DAILY PRN gerd 02/15/21 02/26/25 History release aspirin 81 mg tablet,delayed 81 mg PO DAILY 07/09/24 02/26/25 History release lisinopril 10 mg tablet 10 mg PO QAM #90 tabs 07/10/24 02/26/25 Rx metoprolol tartrate 25 mg tablet 25 mg PO BID #180 tabs 07/10/24 02/26/25 Rx nitroglycerin 0.4 mg sublingual 0.4 mg sublingual Q5M PRN chest 07/10/24 02/26/25 Rx tablet (Nitrostat) pain #25 tabs ticagrelor 90 mg tablet (Brilinta) 90 mg PO BID #180 tabs 07/10/24 02/26/25 Rx multivitamin 1 tab PO DAILY 02/26/25 02/26/25 History orlistat 60 mg capsule 120 mg PO TID PRN fat containing 02/26/25 02/26/25 History meals rosuvastatin 40 mg tablet 40 mg PO QPM 02/26/25 02/26/25 History sertraline 100 mg tablet 100 mg PO DAILY 02/26/25 02/26/25 History Past Med/Surg History Problem List (Updated 02/26/25 @ 16:46 by Padmini Otto PA-C) History of CT (myocardial infarction) (Acute) CHAMPAGNE (dyspnea on exertion) (Acute) Precordial chest pain (Acute) Benign essential hypertension Atherogenic dyslipidemia Coronary artery disease with angina pectoris Bunionette of right foot Hallux valgus (acquired), right foot Encounter for pre-operative examination Medical History Non-ST elevation CT (NSTEMI) History of COVID-19 11/01/20 [facility]; congestion, loss of taste/smell; denies lingering symptoms Acid reflux Tinnitus Hearing deficit BL Depression HLD (hyperlipidemia) HTN (hypertension) Surgical History History of surgical removal of ganglion cyst History of tonsillectomy History of arthroscopy of right knee History of arthroscopy of left knee History of foot surgery History of colonoscopy Family History Other No family history of adverse response to anesthesia Social History (Updated 02/26/25 @ 14:32 by Padmini Otto PA-C) Smoking Status: Never smoker Second Hand Exposure: No; Do You Dip or Chew Tobacco: No; Hx Alcohol Use: Yes Alcohol type: beer Alcohol Intake Frequency Comment: rare since CT in Jun Hx Substance Use: No Preferred Language: Wolof Communication Ability: Effective Visual Impairment: No Limitations Clinical Safety Manager Required: No Beliefs That Will Affect Care: None Current Living Situation: Spouse Feels Safe at Home: Yes Assistive Devices: None Review of Systems Review of Systems: All systems reviewed & are unremarkable except as noted in Subjective Physical Exam Physical Exam: Please see physician note for details of the physical exam Results & Data Results & Data Vital Signs (Past 12 Hours) Vital Signs Temp Pulse Resp BP Pulse Ox O2 Del Method 02/26/25 13:26 Room Air 02/26/25 13:16 69 02/26/25 12:46 36.9 C 78 16 146/84 H 96 Room Air Laboratory Results Lab Results 02/26/25 Range/Units 13:00 WBC 7.50 (4.8-10.8) K/ul RBC 5.06 (4.70-6.10) M/uL Hgb 14.5 (14.0-18.0) g/dl Hct 42.7 (42.0-52.0) % MCV 84.4 (80.0-100.0) fL MCH 28.7 (25.0-34.0) pg MCHC 34.0 (32.0-36.0) g/dL RDW Std Deviation 37.8 (36.4-46.3) fL RDW Coeff of [place]amel 12.5 (11.5-14.5) % Plt Count 232 (130-400) K/uL MPV 9.5 (9.4-12.4) fL Immature Gran % (Auto) 0.3 % Neut % (Auto) 61.1 % Lymph % (Auto) 27.1 % [place] % (Auto) 7.9 % Eos % (Auto) 2.9 % Baso % (Auto) 0.7 % Neut # (Auto) 4.59 (1.40-6.50) K/uL Lymph # (Auto) 2.03 (1.20-3.40) K/uL [place] # (Auto) 0.59 (0.11-0.59) K/uL Eos # (Auto) 0.22 (0.00-0.50) K/uL Baso # (Auto) 0.05 (0.00-0.20) K/uL Immature Gran # (Auto) 0.02 (0.01-0.20) K/uL PT 10.5 (9.0-12.0) Seconds INR 1.0 (0.9-1.1) APTT 28 (21-31) Seconds PTT Ratio 1.0 Sodium 137 (136-145) mmol/L Potassium 4.1 (3.5-5.1) mmol/L Chloride 104 (98-107) mmol/L Carbon Dioxide 26 (21-32) mmol/L Anion Gap 7 (3-11) BUN 20 (6-23) mg/dl Creatinine 1.00 (0.6-1.4) mg/dl Est Cr Clr Drug Dosing 94.8 ml/min eGFR 85.10 BUN/Creatinine Ratio 20.0 (10-20) Glucose 89 (70-99(Fasting)) mg/dl Calcium 9.6 (8.6-10.3) mg/dl Magnesium 1.9 (1.7-2.4) mg/dl Total Bilirubin 0.8 (0.2-1.0) mg/dl AST 23 (13-39) U/L ALT 24 (7-52) U/L Alkaline Phosphatase 53 (34-104) U/L Troponin I High Sens 3.2 (0-20) pg/ml Total Protein 8.0 (6.0-8.3) gm/dl Albumin 4.7 (3.4-5.0) gm/dl Globulin 3.3 (2.5-4.0) gm/dl Albumin/Globulin Ratio 1.4 (0.9-2) Diagnostic Findings Chest X-Ray 02/26/25 12:49 XR chest 1V not portable CLINICAL HISTORY: Chest pain, nonspecific COMPARISON STUDY: 07/09/2024 FINDINGS: Heart size and pulmonary vasculature are normal. No effusion, consolidation, or pneumothorax. IMPRESSION: No acute findings. ACT 112: Negative or not required by law. Electronically signed by: Cruzito Marte M.D. 02/26/2025 1:32 PM Medications Administered Discontinued Medications Nitroglycerin (Nitroglycerin 2% Ointment 30gm Tube) 1 inch EXT NOW STA Stop: 02/26/25 13:09 Last Admin: 02/26/25 13:22 Dose: 1 inch Documented By: CEF Supervising Physician Co-Signing Physician Notes Presents with persistent left sided chest pain radiating to left arm for past 2 days, associated with exertional dyspnea Reports pain started while cutting tree Reports pain is currently improved with nitro patch in ER On exam, General: Not in distress Eyes: PERRL, conjunctivae normal, not pale, anicteric sclerae, EOM intact bilaterally ENMT: External ear and nose normal, oropharynx normal Respiratory: Normal respiratory effort, no respiratory distress, lungs clear to auscultation, no crackles and no wheezes Cardiovascular: RRR S1 S2 Chest (Breasts): No tenderness on palpation Gastrointestinal (Abdomen): Abdomen is not distended, soft, non-tender to palpation, no guarding, no palpable hepatosplenomegaly, normal bowel sounds Musculoskeletal: No pedal edema Neurologic: Alert and oriented x 3, No focal weakness, sensation grossly intact Psychiatric: Euthymic affect Labs unremarkable EKG showed NSR. No acute ST changes Chest pain Considering history of NSTEMI with stents and pain characteristics, admit for chest pain workup Trend trop Tele Cards c/s TTE Continue DIET TECH ASA, Brilinta and statin Other plans as detailed by Cynthia Otto PA-C I spent a total of 35 minutes coordinating, documenting and providing care for this patient excluding time spent in performance of separately billed services (6) Coronary artery disease with angina pectoris Coronary Disease-Associated Artery/Lesion type: eek artery [place] vs. transplanted heart: eek heart Qualified Code(s): I25.119 - Atherosclerotic heart disease of eek coronary artery with unspecified angina pectoris
[2025-02-26] MEDS: METOPROLOL TARTRATE 25 MG TAB PO ONE (16:09)
[2025-02-26] MEDS ORDERED: NITROGLYCERIN SL 0.4 MG/TAB TAB SL PRN (16:26)
[2025-02-26] MEDS: MAGNESIUM SULFATE / D5W 1 GM/100 ML BAG IV ONE (18:00)
[2025-02-26] MEDS: TICAGRELOR 90 MG TAB PO SCH (20:34)
[2025-02-26] MEDS: ROSUVASTATIN CALCIUM 20 MG TAB PO SCH (20:34)
[2025-02-26] MEDS: METOPROLOL TARTRATE 25 MG TAB PO SCH (20:34)
[2025-02-27] MEDS: ACETAMINOPHEN 325 MG TAB PO PRN (06:10)
[2025-02-27 07:03] LABS: Chol HDL Ratio 3.1 (0-5)
[2025-02-27 07:19] LABS: Estimated Average Glucose 123 mg/dl; Hemoglobin A1C 5.9 % (4.5-5.6)
[2025-02-27 07:50] VITALS: PULSE 67
[2025-02-27 08:34] LABS: Thyroid Stimulating Hormone 1.49 uIu/ml (0.300-4.500)
[2025-02-27] MEDS: ENOXAPARIN INJ 40 MG/0.4 ML SYR SQ SCH (09:23)
[2025-02-27] MEDS: SERTRALINE HCL 100 MG TABLET PO SCH (09:24)
[2025-02-27] MEDS: DICLOFENAC SOD 1% GEL 100 GM TUBE EXT SCH (09:24)
[2025-02-27] MEDS: KETOROLAC TROMETHAMINE 15 MG/ML VIAL IV PRN (09:24)
[2025-02-27] MEDS: lisinopril 10 MG TAB PO SCH (09:25)
[2025-02-27] MEDS: MULTIVITAMIN TAB PO SCH (09:25)
[2025-02-27] MEDS: ASPIRIN 81 MG ECTAB PO SCH (09:25)
--- NOTE | 2025-02-27 10:47 | XCELERA ---
[id number] [id number]
[2025-02-27 11:46] VITALS: RESP 18; TEMP 97.5; O2SAT 97
--- NOTE | 2025-02-27 12:08 | Discharge Summary ---
Discharge Summary Date of Service February 27, 2025 Principal Dx & Hospital Course #1 = Principal Diagnosis (1) CHAPMAGNE (dyspnea on exertion): (2) Precordial chest pain: (3) History of [place] (myocardial infarction): (4) Benign essential hypertension: (5) Atherogenic dyslipidemia: (6) Coronary artery disease with angina pectoris: Plan This is a 64 y/o male with prior NSTEMI in Jul 12 s/p stent x 3, HTN, dyslipidemia, GERD, and other history as outlined below who presents to the ED with left shoulder and chest pain that started two days ago. Associated dyspnea with exertion and increasing palpitations. Work-up in the revealed a normal troponin, EKG negative for ischemic changes (personally reviewed), and chest x- ray without acute disease. Pt was referred for admission for observation and further work-up. #Chest pain #Exertional dyspnea #CAD/hx NH s/p stent x 3 - echo, troponins unremarkable reassuring for no ACS - has known pathologies in left shoulder requiring surgery - has high PVC load on telemetry, likely cause of symptoms - discussed with outpatient clay artisan, will get sooner cardiology appt - increase metoprolol to help with PVCs #Hypertension - BP currently controlled in the ED - Continue lisinopril, metoprolol tartrate and monitor #Dyslipidemia - Continue statin #GERD - Uses prn omeprazole at home but rarely takes - denies need for at present Notes For Next Care Provider This is a 64 y/o male with prior NSTEMI in Jul 12 s/p stent x 3, HTN, dys lipidemia, GERD, and other history as outlined below who presents to the ED with left shoulder and chest pain that started two days ago. On medicine, negative troponins and unchanged echo reassuring for no ACS. PVCs noted on telemetry, likely cause of symptoms. Discussed with outpatient clay artisan, will get him sooner appointment. On 02/27/2025 medically stable for discharge home. To do: [ ] follow up on PVC load outpatient Medication Changes From Visit -see below Admission HPI Per Admitting Provider This is a 64 y/o male with prior NSTEMI in Jul 12 s/p stent x 3, HTN, dyslipidemia, GERD, and other history as outlined below who presents to the ED with left shoulder and chest pain that started two days ago. This pain started while he was cutting up a tree and has persisted since it started. He has also noted dyspnea with exertion - was cleaning out the hot tub today and got short of breath, which is new for him. This pain feels similar to prior NH, rates as moderate in severity but less severe than with NH. Has been more fatigued than usual. Denies fevers, sweats, N/V/D, abdominal pain, cough, congestion. Noted heartburn last night so took two antacids with relief - this felt different than the chest pain. Tried nitro for pain yesterday without relief. Since cardiac stents placed, he has had occasional palpitations described as a "lump" in his chest, sensation of skipping beats. However, these palpitations have been increasing in frequency over the last two days, since the pain started. The pain may get worse when he has palpitations. Denies associated lightheadedness, syncope. Discharge Exam Gen: A&O 3 NAD HEENT: NCAT, EOMI, not icteric. External ears normal. No rhinorrhea. Moist mucous membranes. Neck: Supple, full range of motion, no observable masses, No meningeal sign. Lungs: No Respiratory distress. CV: RRR, no edema. Abdomen: Soft, nondistended, No rebound tenderness. MSK: No joint swelling, no redness. Skin: No rashes, petechiae, lesions. Normal color per patient. Neuro: Normal Gait, Grossly intact. Psych: Appropriate for situation. Updated Medication List Medication Instructions Recorded Confirmed Type omeprazole 20 mg tablet,delayed 20 mg PO DAILY PRN gerd 02/15/21 02/26/25 History release aspirin 81 mg tablet,delayed 81 mg PO DAILY 07/09/24 02/26/25 History release lisinopril 10 mg tablet 10 mg PO QAM #90 tabs 07/10/24 02/26/25 Rx nitroglycerin 0.4 mg sublingual 0.4 mg sublingual Q5M PRN chest 07/10/24 02/26/25 Rx tablet (Nitrostat) pain #25 tabs ticagrelor 90 mg tablet (Brilinta) 90 mg PO BID #180 tabs 07/10/24 02/26/25 Rx multivitamin 1 tab PO DAILY 02/26/25 02/26/25 History orlistat 60 mg capsule 120 mg PO TID PRN fat containing 02/26/25 02/26/25 H istory meals rosuvastatin 40 mg tablet 40 mg PO QPM 02/26/25 02/26/25 History sertraline 100 mg tablet 100 mg PO DAILY 02/26/25 02/26/25 History metoprolol tartrate 50 mg tablet 50 mg PO BID #60 tabs 02/27/25 Rx Hospital Stay Data Consultations 02/26/25 14:13 ED Decision to Admit Stat Pending Results Patient Have Any Pending Studies at Discharge: No Discharge Instructions Given to Patient (Per Discharging Provider) 1. Please follow up with cardiology and PCP. 2. Please take medications as prescribed. Total Time Total Time Spent Total Time Spent (In Minutes): I spent a total of 35 minutes in direct patient care, including [id number] time with the patient and/or family, reviewing medical records, ordering and reviewing diagnostic tests, and coordinating care with other healthcare providers. This time includes: history taking, physical examination, medical decision making, counseling, ECG interpretation, imaging interpretation, lab interpretation, orders, and education, excluding time spent in the performance of separately billed services.
--- NOTE | 2025-02-27 12:35 | Electrocardiogram Report ---
Test Reason : Blood Pressure : */* mmHG Vent. Rate : 71 BPM Atrial Rate : 71 BPM P-R Int : 146 ms QRS Dur : 82 ms QT Int : 394 ms P-R-T Axes : 73 46 42 degrees QTcB Int : 428 ms Normal sinus rhythm Normal ECG When compared with ECG of 09-Jul-2024 21:52, PREVIOUS ECG IS PRESENT Confirmed by Jez Mckeon ([id number]) on 02/27/2025 12:35:37 PM Referred By: REFERRED SELF Confirmed By: Jez Mckeon
[2025-02-27 12:49] VITALS: BP 118/65
--- NOTE | 2025-02-27 13:13 | Electrocardiogram Report ---
Test Reason : Blood Pressure : */* mmHG Vent. Rate : 70 BPM Atrial Rate : 70 BPM P-R Int : 160 ms QRS Dur : 82 ms QT Int : 408 ms P-R-T Axes : 62 42 38 degrees QTcB Int : 440 ms Normal sinus rhythm Normal ECG When compared with ECG of 26-Feb-2025 15:29, (unconfirmed) No significant change was found Confirmed by Jez Mckeon ([id number]) on 02/27/2025 1:13:34 PM Referred By: REFERRED SELF Confirmed By: Jez Mckeon
== END 2025-02-27 12:25 | disposition home or self-care (01) ==
LOC: 2S 12:44 → ED 12:44 → SUATTDRO 14:38 → 2S 16:29